=== PATIENT | male | born 1955 | race Caucasian/White ===

== ENCOUNTER → 2019-01-20 | Outpatient (CLI) | payer MEDICARE ==
--- NOTE | 2019-01-20 10:30 | Diagnostic Imaging Report ---
Clinical indication: Patient with shortness of breath. Exam: Chest x-ray PA and lateral views. Comparisons: None. Findings: Central line seen overlying left chest with tip in the mid superior vena cava. Lungs/pleura: There is mild patchy airspace opacities involving both lung bases and slight low lung volumes seen. There is no pneumothorax. There is no pleural effusion. Mediastinum: Unremarkable. Pulmonary vasculature: Unremarkable. Heart: Unremarkable. Bones/extrathoracic soft tissue: There are degenerative spurs involving the thoracic spine. Impression: 1: There is bibasilar atelectasis versus infiltrate. Dictated by: Dictated on workstation # [id number]
== END ==
LOC: RAD FS 09:51
PROVIDERS: ATTEND Physician Assistant
DX: J18.9 Pneumonia, unspecified organism (principal); Z95.828 Presence of other vascular implants and grafts
CPT/HCPCS: 71046

== ENCOUNTER → 2019-05-26 | Outpatient (CLI) | payer MEDICARE ==
[2019-05-26 10:12] LABS: CREATININE SERUM 1.35 MG/DL (0.60-1.30); POTASSIUM 4.3 MMOL/L (3.6-5.0)
--- NOTE | 2019-05-26 13:09 | Diagnostic Imaging Report ---
INDICATION: Multiple myeloma. TECHNIQUE: Bone survey performed in the routine fashion. FINDINGS: Views of the skull demonstrate few tiny punctate lucencies in the bony calvarium which may be related to patient's history of myeloma. Views of the cervical spine demonstrate diffuse degenerative changes, especially of the C5-C6 level, without discrete lytic lesion or compression deformity. Views of the thoracic spine demonstrate loss of height of T12 which is of undetermined age, may be chronic. Views of the lumbar spine show diffuse degenerative changes with normal height of the lumbar vertebrae. There is disc space narrowing, most prominent at L4-L5. Views of the ribs demonstrate no definite lytic lesion. There appear to be old fractures of the right fourth through eighth ribs. Views of the pelvis demonstrate ill-defined lucent areas over the iliac bones on both sides as well as over the proximal femurs, myelomatous involvement is not excluded. The distal femurs appear intact. The humeri appear unremarkable. The tibia and fibula on each side appear normal. The radius and ulna appear normal on both sides. IMPRESSION: There are small ill-defined lucencies in the bony calvarium which may represent myelomatous involvement. There also appear to be ill-defined lucencies in the bony pelvis and proximal femurs which could represent myelomatous involvement. There is a compression deformity of T12 of uncertain age. There are underlying degenerative findings in the spine, as above. Dictated by: Dictated on workstation # [id number]
== END ==
LOC: RAD FS 08:36
PROVIDERS: ATTEND Internal Medicine
DX: C90.00 Multiple myeloma not having achieved remission (principal); R79.89 Other specified abnormal findings of blood chemistry; M43.8X4 Other specified deforming dorsopathies, thoracic region
CPT/HCPCS: 36415; 77075; 80048

== ENCOUNTER 2022-06-15 15:50 | Observation (INO) | payer MEDICARE, OTHER ==
[~2022-06-15] VITALS: Ht 177.8 cm; Wt 103.0 kg
--- NOTE | 2022-06-15 15:53 | ED Fall/Injury ---
General Stated Complaint: FALL, RIGHT SIDE PAIN History of Present Illness Date Seen by Provider: Jun 15, 2022 Time Seen by Provider: 15:52 Initial Comments 66-year-old male with PMH of multiple myeloma on chemo and radiation/asthma, is brought in by EMS with complaints of falling off the second rung of a ladder after his foot got twisted and it. Patient fell on his right side and is complaining of right sided posterior rib pain and thoracic spine pain. Patient also complains of RUQ pain. Patient denies SOB, chest pain, head strike, neck pain, LOC, nausea vomiting, dizziness, headache. Allergies and Home Medications Allergies Coded Allergies: No Known Drug Allergies (Unverified , 06/15/22) Patient Home Medication List Home Medication List Reviewed: Yes Review of Systems Review of Systems Constitutional: no symptoms reported, see HPI Eyes: No Symptoms Reported Ears, Nose, Mouth, Throat: no symptoms reported Respiratory: no symptoms reported Cardiovascular: no symptoms reported Gastrointestinal: RUQ Genitourinary: no symptoms reported Musculoskeletal: back pain Skin: no symptoms reported Psychiatric/Neurological: No Symptoms Reported Physical Exam Vital Signs Vital Signs - First Documented Capillary Refill : Height, Weight, BMI Height: '" Weight: lbs. oz. kg; BMI Method: General Appearance: WD/WN, no apparent distress HEENT: PERRL/EOMI, normal ENT inspection Neck: non-tender, full range of motion, supple, normal inspection Cardiovascular: regular rate, rhythm, other (right sided rib pain more posteriorly from 5th rib downwards. no bruising on ribs) Respiratory: chest non-tender, lungs clear, normal breath sounds, no respiratory distress, no accessory muscle use, other (bilateral chest expansion equal and normal) Gastrointestinal: normal bowel sounds, soft, no pulsatile mass, tenderness (tender in RUQ on palpation), other (bruising seen in RUQ) Pelvic: normal external exam Extremities: normal range of motion, non-tender, normal inspection Neurologic/Psychiatric: supervisor liquid yeast II-XII nml as tested, no motor/sensory deficits, alert, normal mood/affect, oriented x 3 Skin: normal color Lymphatic: no adenopathy [place] Coma Score Best Eye Response: (4) Open Spontaneously Best Verbal Response: (5) Oriented Best Motor Response: (6) Obeys Commands [place] Total: 15 Progress/Results/Core Measures Results/Orders Lab Results Laboratory Tests Test 06/15/22 16:00 Range/Units White Blood Count 6.3 4.3-11.0 10^3/uL Red Blood Count 3.98 L 4.30-5.52 10^6/uL Hemoglobin 10.3 L 13.3-17.7 g/dL Hematocrit 33 L 40-54 % Mean Corpuscular Volume 82 80-99 fL Mean Corpuscular Hemoglobin 26 25-34 pg Mean Corpuscular Hemoglobin Concent 32 32-36 g/dL Red Cell Distribution Width 16.9 H 10.0-14.5 % Platelet Count 134 130-400 10^3/uL Mean Platelet Volume 10.8 9.0-12.2 fL Immature Granulocyte % (Auto) 1 % Neutrophils (%) (Auto) 51 42-75 % Lymphocytes (%) (Auto) 31 12-44 % Monocytes (%) (Auto) 16 H 0-12 % Eosinophils (%) (Auto) 1 0-10 % Basophils (%) (Auto) 0 0-10 % Neutrophils # (Auto) 3.2 1.8-7.8 10^3/uL Lymphocytes # (Auto) 2.0 1.0-4.0 10^3/uL Monocytes # (Auto) 1.0 0.0-1.0 10^3/uL Eosinophils # (Auto) 0.1 0.0-0.3 10^3/uL Basophils # (Auto) 0.0 0.0-0.1 10^3/uL Immature Granulocyte # (Auto) 0.1 0.0-0.1 10^3/uL Urine Color YELLOW Urine Clarity CLEAR Urine pH 6.0 5-9 Urine Specific [place] 1.020 1.016-1.022 Urine Protein NEGATIVE NEGATIVE Urine Glucose (UA) NEGATIVE NEGATIVE Urine Ketones NEGATIVE NEGATIVE Urine Nitrite NEGATIVE NEGATIVE Urine Bilirubin NEGATIVE NEGATIVE Urine Urobilinogen 0.2 < = 1.0 MG/DL Urine Leukocyte Esterase NEGATIVE NEGATIVE Urine RBC (Auto) TRACE-I H NEGATIVE Urine RBC 0-2 /HPF Urine WBC NONE /HPF Urine Squamous Epithelial Cells RARE /HPF Urine Crystals NONE /LPF Urine Bacteria NEGATIVE /HPF Urine Casts PRESENT /LPF Urine Hyaline Casts 0-2 H /LPF Urine Mucus MODERATE H /LPF Urine Culture Indicated NO Sodium Level 138 135-145 MMOL/L Potassium Level 3.9 3.6-5.0 MMOL/L Chloride Level 102 98-107 MMOL/L Carbon Dioxide Level 27 21-32 MMOL/L Anion Gap 9 5-14 MMOL/L Blood Urea Nitrogen 15 7-18 MG/DL Creatinine 1.07 0.60-1.30 MG/DL Estimat Glomerular Filtration Rate 77 BUN/Creatinine Ratio 14 Glucose Level 107 H 70-105 MG/DL Calcium Level 8.8 8.5-10.1 MG/DL Corrected Calcium 9.2 8.5-10.1 MG/DL Total Bilirubin 0.3 0.1-1.0 MG/DL Aspartate Amino Transf (AST/SGOT) 21 5-34 U/L Alanine Aminotransferase (ALT/SGPT) 14 0-55 U/L Alkaline Phosphatase 66 40-136 U/L Total Protein 5.6 L 6.4-8.2 GM/DL Albumin 3.5 3.2-4.5 GM/DL My Orders Orders - IMANI JACOBS MD Ct Thoracic/Lumbar Spine Wo (06/15/22 15:53) Cbc With Automated Diff (06/15/22 16:00) Comprehensive Metabolic Panel (06/15/22 16:00) Ua Culture If Indicated (06/15/22 16:00) Ct Chest/Abdomen/Pelvis Wo (06/15/22 15:53) Incentive Spirometry (Nursing) Q2H (06/15/22 17:17) Ketorolac Injection (Toradol Injection) (06/15/22 17:30) Medications Given in ED Current Medications Medications Dose Ordered Sig/Chanel Route Start Time Stop Time Status Last Admin Dose Admin Ketorolac Tromethamine 15 mg ONCE ONCE IVP 06/15/22 17:30 06/15/22 17:31 DC 06/15/22 17:32 15 MG Vital Signs/I&O 06/15/22 06/15/22 15:53 15:53 Temp 36.7 36.5 Pulse 73 73 Resp 17 17 B/P (MAP) 170/95 (120) 170/95 (120) O2 Delivery Room Air Room Air Progress Progress Note : Progress Note 1. FALL: MULTIPLE RIB FRACTURES - CT CHEST: see report: Fractures of Right sided, 1st rib ( posterior), 6th rib ( displaced), 7th rib, 9th rib, and left sided 7th rib, no pneumothorax - CT THORACIC-LUMBAR SPINE: see report, chronic disc herniations between L2-L5 - CT CT ABD: no acute findings - CBC/ CMP: unremarkable - UA: RBC positive - Toradol 15mg iv and Dilaudid 0.5mg iv given in ER - Incentive spirometry in ER - Will admit to observation for pain control and incentive spirometry. Discussed with Dr Chaparro Diagnostic Imaging Diagonstic Imaging: CT Plain Films/CT/US/NM/MRI: chest, abdomen, other Comments [facility], [place] NAME: MICHAEL GRIMES [facility] REC#: [id number] PT STATUS: REG ER : 1955 PHYSICIAN: IMANI JACOBS MD ADMIT DATE: 06/15/22/ER FS Draft Date of Exam:06/15/22 CT THORACIC/LUMBAR SPINE WO PROCEDURE: CT thoracic and lumbar spine without contrast. TECHNIQUE: Multiple contiguous axial images were obtained through the thoracic and lumbar spine without the use of intravenous contrast. Sagittal and coronal reformations were then performed. All CT scans use one or more of the following dose optimizing techniques: automated exposure control, MA and/or KvP adjustment based on patient size and exam type or iterative reconstruction. INDICATION: 66-year-old male, status post fall off a ladder, approximately 2-3', landing on right side. CORRELATION STUDY: None. FINDINGS: There is extensive demineralized appearance about the osseous structures with multiple extensive lytic changes throughout all visualized osseous structures compatible with history of multiple myeloma. Mild compression deformity of superior T4 endplate appearing to be nonacute. An acute appearing compression deformity of the thoracic spine does not appear to be present. There are scattered areas of multiple anteriorly wedged vertebral bodies. Posterior elements intact. Lumbar spine demonstrates slight scalloping and intervertebral disc herniation at the superior L2 and L4 vertebral bodies appearing to be nonacute. Posterior elements are intact and normal in alignment. Various degrees of rather significant disc space narrowing. Most severe at the L4-L5 level with a markedly expanded appearance about the left sacral ala with soft tissue mass and extensive destructive change. Additional large lytic lesions about the right iliac bone. There is bony fusion across the right sacroiliac joint. Displaced right posterior 6th rib fracture. Nondisplaced right posterior 1st rib fracture. Trace pleural effusion and/or hemothorax. No significant visualized pneumothorax. IMPRESSION: 1. Negative for acute thoracic and/or lumbar spine fracture. 2. Displaced partially visualized right posterior 6th rib fracture along with a nondisplaced right posterior 1st rib fracture. 3. Extensive lytic changes throughout all visualized osseous structures consistent with extensive multiple myeloma. Largest destructive lesion involving the left sacral ala. Dictated on workstation # [id number] Dict: 06/15/22 1650 Trans: 06/15/22 1715 PJE [id number] Interpreted by: PADMINI THOMAS DO Electronically signed by: [facility] [place], [place] NAME: MICHAEL GRIMES [facility] REC#: [id number] PT STATUS: REG ER : 1955 PHYSICIAN: IMANI JACOBS MD ADMIT DATE: 06/15/22/ER FS Draft Date of Exam:06/15/22 CT CHEST/ABDOMEN/PELVIS WO EXAMINATION: CT chest, abdomen and pelvis without intravenous contrast. TECHNIQUE: Multiple contiguous axial images were obtained through the chest, abdomen and pelvis without intravenous contrast. All CT scans use one or more of the following dose optimizing techniques: automated exposure control, MA and/or KvP adjustment based on patient size and exam type or iterative reconstruction. HISTORY: Chest and abdomen injury. COMPARISON: None available. FINDINGS: There is no edema or pneumonia. No pleural effusion. No pneumothorax. No suspicious nodules. There is no axillary or supraclavicular lymphadenopathy. There is no mediastinal lymphadenopathy. A left-sided portacatheter is present. Heart size is normal. There are mild coronary artery calcifications. No pericardial effusion. Aorta is normal in caliber. There are several low attenuating liver lesions, some of which are cysts and others are too small to characterize. There is no biliary ductal dilation. Gallbladder is normal. Pancreas is normal. Spleen is normal. Adrenal glands are normal. Left kidney is surgically absent. There is a cyst in the right kidney. No suspicious renal lesion. There is no hydronephrosis. Urinary bladder is normal. There has been a right colon resection. No bowel obstruction or inflammation. There is a small fat-containing ventral abdominal hernia.No free fluid or air. No abdominal or pelvic lymphadenopathy. Aorta is normal in caliber without aneurysm. There are lytic lesions scattered throughout the spine and pelvis including the largest lesion in S2 measuring 2.5 cm. There is a right 9th rib fracture. There is a right 7th rib fracture. There is a right 6th rib fracture. There is a left 7th rib fracture. Mild height loss at T12 would be better evaluated on dedicated thoracic and lumbar spine CT. IMPRESSION: 1. Right 6th, 7th and 9th rib fractures and left 7th rib fracture. 2. Lytic lesions throughout the spine and pelvis, correlate for any known malignancy. Dictated on workstation # [id number] Dict: 06/15/223 Trans: 06/15/22 170 [facility] [id number] Interpreted by: KOLBY MORALES MD Electronically signed by: Departure Communication (Admissions) Time/Spoke to Admitting Phy: 17:[address] Chaparro Impression Primary Impression: Fall from ladder Qualified Codes: W11.XXXA - Fall on and from ladder, initial encounter Additional Impression: Multiple rib fractures involving four or more ribs Disposition: 30 STILL A PATIENT Condition: Stable Admissions Decision to Admit Reason: Admit from ER (General) Decision to Admit/Date: Jun 15, 2022 Time/Decision to Admit Time: 17:40 Transfer Transfer Reason: Exceeds level of care Time Spoke to Accepting Phy: 17:53 Transfer Facility: [facility] Method of Transfer: EMS Departure-Patient Inst. Referrals: ZAIN DEL TORO MD (PCP/Family) Primary Care Physician IMANI JACOBS MD Jun 15, 2022 15:53
[2022-06-15 16:10] LABS: BASOPHILS % (AUTO) 0 % (0-10); EOSINOPHILS # (AUTO) 0.1 10^3/uL (0.0-0.3); EOSINOPHILS % (AUTO) 1 % (0-10); HEMATOCRIT 33 % (40-54); HEMOGLOBIN 10.3 g/dL (13.3-17.7); LYMPHOCYTES % (AUTO) 31 % (12-44); MEAN CORPUSCULAR HEMOGLOBIN 26 pg (25-34); MEAN CORPUSCULAR HGB CONC 32 g/dL (32-36); MEAN CORPUSCULAR VOLUME 82 fL (80-99); MEAN PLATELET VOLUME 10.8 fL (9.0-12.2); MONOCYTES % (AUTO) 16 % (0-12); NEUTROPHILS # (AUTO) 3.2 10^3/uL (1.8-7.8); NEUTROPHILS % (AUTO) 51 % (42-75); PLATELET COUNT 134 10^3/uL (130-400); WHITE BLOOD COUNT 6.3 10^3/uL (4.3-11.0)
[2022-06-15 16:15] LABS: BILIRUBIN,URINE NEGATIVE (NEGATIVE); CLARITY,URINE CLEAR; COLOR,URINE YELLOW; GLUCOSE, URINE (UA) NEGATIVE (NEGATIVE); KETONES,URINE NEGATIVE (NEGATIVE); LEUKOCYTE ESTERASE ,URINE NEGATIVE (NEGATIVE); NITRITE,URINE NEGATIVE (NEGATIVE); PROTEIN,URINE NEGATIVE (NEGATIVE)
[2022-06-15 16:20] LABS: BACTERIA,URINE NEGATIVE /HPF; HYALINE CASTS, URINE 0-2 /LPF; RBC,URINE 0-2 /HPF; SQUAMOUS EPITHELIAL CELL,UR RARE /HPF
[2022-06-15 16:30] LABS: ALBUMIN 3.5 GM/DL (3.2-4.5); BILIRUBIN,TOTAL 0.3 MG/DL (0.1-1.0); CALCIUM 8.8 MG/DL (8.5-10.1); CREATININE SERUM 1.07 MG/DL (0.60-1.30); POTASSIUM 3.9 MMOL/L (3.6-5.0); TOTAL PROTEIN 5.6 GM/DL (6.4-8.2)
--- NOTE | 2022-06-15 17:09 | Diagnostic Imaging Report ---
EXAMINATION: CT chest, abdomen and pelvis without intravenous contrast. TECHNIQUE: Multiple contiguous axial images were obtained through the chest, abdomen and pelvis without intravenous contrast. All CT scans use one or more of the following dose optimizing techniques: automated exposure control, MA and/or KvP adjustment based on patient size and exam type or iterative reconstruction. HISTORY: Chest and abdomen injury. COMPARISON: None available. FINDINGS: There is no edema or pneumonia. No pleural effusion. No pneumothorax. No suspicious nodules. There is no axillary or supraclavicular lymphadenopathy. There is no mediastinal lymphadenopathy. A left-sided portacatheter is present. Heart size is normal. There are mild coronary artery calcifications. No pericardial effusion. Aorta is normal in caliber. There are several low attenuating liver lesions, some of which are cysts and others are too small to characterize. There is no biliary ductal dilation. Gallbladder is normal. Pancreas is normal. Spleen is normal. Adrenal glands are normal. Left kidney is surgically absent. There is a cyst in the right kidney. No suspicious renal lesion. There is no hydronephrosis. Urinary bladder is normal. There has been a right colon resection. No bowel obstruction or inflammation. There is a small fat-containing ventral abdominal hernia.No free fluid or air. No abdominal or pelvic lymphadenopathy. Aorta is normal in caliber without aneurysm. There are lytic lesions scattered throughout the spine and pelvis including the largest lesion in S2 measuring 2.5 cm. There is a right 9th rib fracture. There is a right 7th rib fracture. There is a right 6th rib fracture. There is a left 7th rib fracture. Mild height loss at T12 would be better evaluated on dedicated thoracic and lumbar spine CT. IMPRESSION: 1. Right 6th, 7th and 9th rib fractures and left 7th rib fracture. 2. Lytic lesions throughout the spine and pelvis, correlate for any known malignancy. Dictated by: Dictated on workstation # [id number]
--- NOTE | 2022-06-15 17:16 | Diagnostic Imaging Report ---
PROCEDURE: CT thoracic and lumbar spine without contrast. TECHNIQUE: Multiple contiguous axial images were obtained through the thoracic and lumbar spine without the use of intravenous contrast. Sagittal and coronal reformations were then performed. All CT scans use one or more of the following dose optimizing techniques: automated exposure control, MA and/or KvP adjustment based on patient size and exam type or iterative reconstruction. INDICATION: 66-year-old male, status post fall off a ladder, approximately 2-3', landing on right side. CORRELATION STUDY: None. FINDINGS: There is extensive demineralized appearance about the osseous structures with multiple extensive lytic changes throughout all visualized osseous structures compatible with history of multiple myeloma. Mild compression deformity of superior T4 endplate appearing to be nonacute. An acute appearing compression deformity of the thoracic spine does not appear to be present. There are scattered areas of multiple anteriorly wedged vertebral bodies. Posterior elements intact. Lumbar spine demonstrates slight scalloping and intervertebral disc herniation at the superior L2 and L4 vertebral bodies appearing to be nonacute. Posterior elements are intact and normal in alignment. Various degrees of rather significant disc space narrowing. Most severe at the L4-L5 level with a markedly expanded appearance about the left sacral ala with soft tissue mass and extensive destructive change. Additional large lytic lesions about the right iliac bone. There is bony fusion across the right sacroiliac joint. Displaced right posterior 6th rib fracture. Nondisplaced right posterior 1st rib fracture. Trace pleural effusion and/or hemothorax. No significant visualized pneumothorax. IMPRESSION: 1. Negative for acute thoracic and/or lumbar spine fracture. 2. Displaced partially visualized right posterior 6th rib fracture along with a nondisplaced right posterior 1st rib fracture. 3. Extensive lytic changes throughout all visualized osseous structures consistent with extensive multiple myeloma. Largest destructive lesion involving the left sacral ala. Dictated by: Dictated on workstation # [id number]
[2022-06-15] MEDS ORDERED: KETOROLAC 30 MG/ML VIAL IVP ONE (17:30)
[2022-06-15] MEDS ORDERED: HYDROmorphone 2 MG/ML VIAL (DILAUDID) IV ONE (18:00)
[2022-06-15 19:53] VITALS: BP 170/95
[2022-06-15] MEDS ORDERED: morphine INJ 4 MG/ML 1 ML (VIAL/SYRINGE) ONE (19:58)
[2022-06-15 20:00] VITALS: BP 167/92
[2022-06-15] MEDS ORDERED: KETOROLAC 15 MG/ML VIAL IV PRN (21:15)
[2022-06-15] MEDS ORDERED: morphine INJ 4 MG/ML 1 ML (VIAL/SYRINGE) IV PRN (21:15)
[2022-06-15] MEDS ORDERED: ONDANSETRON 4 MG/2 ML (SDV) Z0FRAN IV PRN (21:30)
[2022-06-15] MEDS ORDERED: MELATONIN 3 MG TABLET PO PRN (21:30)
[2022-06-15] MEDS ORDERED: RT-ALBUTEROL/IPRATROPIUM 3 ML (DUONEB) VIAL IH PRN (21:30)
[2022-06-15] MEDS: oxyCODONE/APAP 5/325MG (PERCOCET 5) TABLET PO PRN (21:34)
[2022-06-15] MEDS: CATHETER FLUSH 10 ML SYR IVP SCH (22:08)
[2022-06-15] MEDS ORDERED: RT-ALBUTEROL SULF 2.5 MG/3 ML PRE-MIX VIAL INH PRN (23:00)
[2022-06-16 00:07] VITALS: BP 155/80
[2022-06-16] MEDS: morphine INJ 4 MG/ML 1 ML (VIAL/SYRINGE) IVP PRN ×4 (03:31→11:37)
[2022-06-16 03:48] VITALS: BP 160/89
[2022-06-16] MEDS: CATHETER FLUSH 10 ML SYR IVP SCH ×2 (05:32→13:55)
[2022-06-16 05:45] LABS: EOSINOPHILS % (AUTO) 1 % (0-10); HEMOGLOBIN 11.5 g/dL (13.3-17.7)
[2022-06-16 05:47] LABS: BASOPHILS % (AUTO) 0 % (0-10); HEMATOCRIT 36 % (40-54); LYMPHOCYTES # (AUTO) 1.2 10^3/uL (1.0-4.0); LYMPHOCYTES % (AUTO) 20 % (12-44); MEAN CORPUSCULAR HEMOGLOBIN 26 pg (25-34); MEAN CORPUSCULAR HGB CONC 32 g/dL (32-36); MEAN CORPUSCULAR VOLUME 81 fL (80-99); MEAN PLATELET VOLUME 10.2 fL (9.0-12.2); MONOCYTES # (AUTO) 0.9 10^3/uL (0.0-1.0); MONOCYTES % (AUTO) 15 % (0-12); NEUTROPHILS # (AUTO) 3.8 10^3/uL (1.8-7.8); NEUTROPHILS % (AUTO) 64 % (42-75); PLATELET COUNT 124 10^3/uL (130-400)
[2022-06-16 06:01] LABS: CREATININE SERUM 0.83 MG/DL (0.60-1.30); POTASSIUM 3.8 MMOL/L (3.6-5.0)
[2022-06-16 08:00] VITALS: BP 164/89
[2022-06-16] MEDS ORDERED: AMLO-251 PO (08:09)
[2022-06-16] MEDS: oxyCODONE/APAP 5/325MG (PERCOCET 5) TABLET PO PRN ×2 (08:54→13:55)
[2022-06-16] MEDS ORDERED: amLODIPine 10 MG (NORVASC) TAB PO SCH (09:00)
[2022-06-16] MEDS ORDERED: SOTA120T PO (10:00)
[2022-06-16] MEDS ORDERED: DEXA4TAB PO (10:00)
[2022-06-16] MEDS ORDERED: APIX5TAB PO (10:00)
[2022-06-16] MEDS ORDERED: PANT40TA52 PO (10:00)
[2022-06-16] MEDS ORDERED: ACYC-108 PO (10:00)
[2022-06-16] MEDS ORDERED: MORP60TA69 PO (10:00)
[2022-06-16] MEDS ORDERED: OXYC1TAB11 PO (10:00)
[2022-06-16] MEDS ORDERED: BORT3.5V IJ (10:02)
[2022-06-16] MEDS ORDERED: POLY17PO6 PO (10:02)
--- NOTE | 2022-06-16 11:54 | Consultation - Surgery ---
SUNITA MATOS 06/16/22 1154: History of Present Illness History of Present Illness Patient Consulted On(josselyn/time) 06/16/22 11:48 Date Seen by Provider: Jun 16, 2022 Time Seen by Provider: 11:20 History of Present Illness Pt is a 66yo M who presented to the ED on the afternoon of 06/15 after falling from a ladder onto his right shoulder and hip. He has a PMH of multiple myeloma, asthma, afib, chrons disease, chronic renal failure,skin cancer, and HTN. Pt reports 2 falls in the last 6 months that were not as hard or serious as this fall. Pt denied that he struck his head on the fall. He denies any loss of consciousness or changes in vision/hearing after the fall. Pt currently has 6/10 pain deep to the right scapula. He describes the pain as "getting stabbed with a knife". Pain is constant and nonradiating. Motion makes the pain worse. Pt reports pain on his right side with deep inspiration. Pt also feels muscle tightness in his torso that he believes is due to him being unable to relax. Pt denies any other issues at this time, such as chest pain, shortness of breath, and N/V. Allergies and Home Medications Allergies Coded Allergies: thalidomide (Verified Allergy, Unknown, 06/15/22) Patient Home Medication List Home Medication List Reviewed: Yes Acyclovir (Acyclovir) 200 Mg Capsule, 400 MG PO BID, (Reported) Entered as Reported by: BREANNA GUERRERO on 06/16/22 1000 Last Action: Reviewed Amlodipine Besylate (Amlodipine Besylate) 10 Mg Tablet, 10 MG PO DAILY, (Reported) Entered as Reported by: TIANA NERI on 06/16/22 0809 Last Action: Reviewed Apixaban (Eliquis) 5 Mg Tablet, 5 MG PO BID, (Reported) Entered as Reported by: BREANNA GUERRERO on 06/16/22 1000 Last Action: Reviewed Bortezomib (Velcade) 3.5 Mg Soln, 3.5 MG IJ [id number], (Reported) Entered as Reported by: BREANNA GUERRERO on 06/16/22 1002 Last Action: Reviewed Dexamethasone (Dexamethasone) 4 Mg Tablet, 20 MG PO THURSDAY, (Reported) Entered as Reported by: BREANNA GUERRERO on 10/10/22 1000 Last Action: Reviewed Morphine Sulfate (Morphine Sulfate ER) 60 Mg Tablet.er, 60 MG PO BID, (Reported) Entered as Reported by: BREANNA GUERRERO on 06/16/22999 Last Action: Reviewed Oxycodone HCl/Acetaminophen (Oxycodone-Acetaminophen 5-325) 5 Mg-325 Mg Tablet, 1 EACH PO Q4H PRN for PAIN-MODERATE (5-7), (Reported) Entered as Reported by: BREANNA GUERRERO on 06/16/22999 Last Action: Reviewed Pantoprazole Sodium (Pantoprazole Sodium) 40 Mg Tablet.dr, 40 MG PO DAILY, (Reported) Entered as Reported by: BREANNA GUERRERO on 06/16/22999 Last Action: Reviewed Polyethylene Glycol 3350 (Miralax) 17 Gram Powd.pack, 17 GM PO DAILY, (Reported) Entered as Reported by: BREANNA GUERRERO on 06/16/221001 Last Action: Reviewed Sotalol HCl (Sotalol) 120 Mg Tablet, 120 MG PO BID, (Reported) Entered as Reported by: BREANNA GUERRERO on 06/16/22999 Last Action: Reviewed Past Twbxihl-Yipmiq-Mbppwy Hx Patient Social History Smoking Status: Never a Smoker Alcohol Use?: No Have you traveled recently?: No Surgeries History of Surgeries: Yes (multiple skin cancers romoved, pt was unsure of pathological findings) Surgeries: Abdominal (pt reports part of intestines removed, CT reveals evidence of right colectomy), Cardiac (ablation for afib), 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, 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) Respiratory History of Respiratory Disorde: Yes Respiratory Disorders: Asthma Cardiovascular History of Cardiac Disorders: Yes Cardiac Disorders: Hypertension Neurological History of Neurological Disord: No (pt denies stroke or seizure) Gastrointestinal History of Gastrointestinal Di: Yes (pt also reports esophageal structure) Gastrointestinal Disorders: Crohns Disease Musculoskeletal History of Musculoskeletal Dis: Yes Musculoskeletal Disorders: Arthritis Endocrine History of Endocrine Disorders: No (pt denies DM) Cancer History of Cancer: Yes (multiple myeloma and skin cancer- pt unsure of what type) Psychosocial History of Psychiatric Problem: No Family Medical History Significant Family History: Cancer (mother had breast cancer), Hypertension (brother), Other Conditions/Hx (pt denies family history of DM and seizure di sorder) Review of Systems-General Constitutional: No chills, No fever EENTM: No hearing loss, No blurred vision, No double vision, No vision loss Respiratory: No cough, No short of breath Cardiovascular: No chest pain; Hx of Intervention (ablation for afib); No palpitations Gastrointestinal: No abdominal pain, No nausea, No vomiting Genitourinary: No dysuria Musculoskeletal: back pain (pain under right scapula), muscle stiffness (pt reports thoracic stiffness due to pain, T-spine is stiff to palpation) Skin: No change in color, No change in hair/nails; hx of skin cancer Psychiatric/Neurological: Denies Headache, Denies Seizure Physical Exam-General Problems Physical Exam Vital Signs Vital Signs - First Documented 06/15/22 06/15/22 18:38 19:53 Pulse Ox 98 FiO2 21 Capillary Refill : Less Than 3 Seconds General Appearance: WD/WN, mild distress (pain) Eyes: Bilateral Eye PERRL, Bilateral Eye EOMI HEENT: PERRL/EOMI; No scleral icterus (R), No scleral icterus (L) Neck: non-tender, supple Respiratory: lungs clear, normal breath sounds, no respiratory distress, other (pt is hesitant to take deep inspiration) Cardiovascular: regular rate, rhythm, no murmur Peripheral Pulses: 2+ Radial Pulses (R), 2+ Radial Pulses (L) Gastrointestinal: normal bowel sounds, non tender, soft, other (CT reports small ventral hernia, could not see or palpate hernia) Rectal: deferred Back: normal inspection (no bruising or discoloration of back), other (pain on palpation of right scapula) Extremities: non-tender, no calf tenderness, pedal edema (pt says this is chronic and better than usual today, up to mid tibia bl) Neurologic/Psychiatric: alert, normal mood/affect, oriented x 3; No facial droop Skin: normal color, warm/dry Lymphatic: no adenopathy (cervical) Data Review Labs Laboratory Tests 06/15/22 16:00: White Blood Count 6.3, Red Blood Count 3.98L, Hemoglobin 10.3L, Hematocrit 33L, Mean Corpuscular Volume 82, Mean Corpuscular Hemoglobin 26, Mean Corpuscular Hemoglobin Concent 32, Red Cell Distribution Width 16.9H, Platelet Count 134, Mean Platelet Volume 10.8, Immature Granulocyte % (Auto) 1, Neutrophils (%) (Auto) 51, Lymphocytes (%) (Auto) 31, Monocytes (%) (Auto) 16H, Eosinophils (%) (Auto) 1, Basophils (%) (Auto) 0, Neutrophils # (Auto) 3.2, Lymphocytes # (Auto) 2.0, Monocytes # (Auto) 1.0, Eosinophils # (Auto) 0.1, Basophils # (Auto) 0.0, Immature Granulocyte # (Auto) 0.1, Urine Color YELLOW, Urine Clarity CLEAR, Urine pH 6.0, Urine Specific [place] 1.020, Urine Protein NEGATIVE, Urine Glucose (UA) NEGATIVE, Urine Ketones NEGATIVE, Urine Nitrite NEGATIVE, Urine Bilirubin NEGATIVE, Urine Urobilinogen 0.2, Urine Leukocyte Esterase NEGATIVE, Urine RBC (Auto) TRACE-IH, Urine RBC 0-2, Urine WBC NONE, Urine Squamous Epithelial Cells RARE, Urine Crystals NONE, Urine Bacteria NEGATIVE, Urine Casts PRESENT, Urine Hyaline Casts 0-2H, Urine Mucus MODERATEH, Urine Culture Indicated NO, Sodium Level 138, Potassium Level 3.9, Chloride Level 102, Carbon Dioxide Level 27, Anion Gap 9, Blood Urea Nitrogen 15, Creatinine 1.07, Estimat Glomerular Filtration Rate 77, BUN/Creatinine Ratio 14, Glucose Level 107H, Calcium Level 8.8, Corrected Calcium 9.2, Total Bilirubin 0.3, Aspartate Amino Transf (AST/SGOT) 21, Alanine Aminotransferase (ALT/SGPT) 14, Alkaline Phosphatase 66, Total Protein 5.6L, Albumin 3.5 06/16/22 05:39: White Blood Count 6.0, Red Blood Count 4.46, Hemoglobin 11.5L, Hematocrit 36L, Mean Corpuscular Volume 81, Mean Corpuscular Hemoglobin 26, Mean Corpuscular Hemoglobin Concent 32, Red Cell Distribution Width 16.4H, Platelet Count 124L, Mean Platelet Volume 10.2, Immature Granulocyte % (Auto) 1, Neutrophils (%) (Auto) 64, Lymphocytes (%) (Auto) 20, Monocytes (%) (Auto) 15H, Eosinophils (%) (Auto) 1, Basophils (%) (Auto) 0, Neutrophils # (Auto) 3.8, Lymphocytes # (Auto) 1.2, Monocytes # (Auto) 0.9, Eosinophils # (Auto) 0.0, Basophils # (Auto) 0.0, Immature Granulocyte # (Auto) 0.0, Sodium Level 142, Potassium Level 3.8, Chloride Level 105, Carbon Dioxide Level 25, Anion Gap 12, Blood Urea Nitrogen 9, Creatinine 0.83, Estimat Glomerular Filtration Rate 97, BUN/Creatinine Ratio 11, Glucose Level 105, Calcium Level 9.0, Percent Immature Platelet Fraction 3.3 Radiology NAME: [facility] REC#: [id number] PT STATUS: REG ER : 1955 PHYSICIAN: IMANI JACOBS MD ADMIT DATE: 06/15/22/ER FS Draft Date of Exam:06/15/22 CT THORACIC/LUMBAR SPINE WO PROCEDURE: CT thoracic and lumbar spine without contrast. TECHNIQUE: Multiple contiguous axial images were obtained through the thoracic and lumbar spine without the use of intravenous contrast. Sagittal and coronal reformations were then performed. All CT scans use one or more of the following dose optimizing techniques: automated exposure control, MA and/or KvP adjustment based on patient size and exam type or iterative reconstruction. INDICATION: 66-year-old male, status post fall off a ladder, approximately 2-3', landing on right side. CORRELATION STUDY: None. FINDINGS: There is extensive demineralized appearance about the osseous structures with multiple extensive lytic changes throughout all visualized osseous structures compatible with history of multiple myeloma. Mild compression deformity of superior T4 endplate appearing to be nonacute. An acute appearing compression deformity of the thoracic spine does not appear to be present. There are scattered areas of multiple anteriorly wedged vertebral bodies. Posterior elements intact. Lumbar spine demonstrates slight scalloping and intervertebral disc herniation at the superior L2 and L4 vertebral bodies appearing to be nonacute. Posterior elements are intact and normal in alignment. Various degrees of rather significant disc space narrowing. Most severe at the L4-L5 level with a markedly expanded appearance about the left sacral ala with soft tissue mass and extensive destructive change. Additional large lytic lesions about the right iliac bone. There is bony fusion across the right sacroiliac joint. Displaced right posterior 6th rib fracture. Nondisplaced right posterior 1st rib fracture. Trace pleural effusion and/or hemothorax. No significant visualized pneumothorax. IMPRESSION: 1. Negative for acute thoracic and/or lumbar spine fracture. 2. Displaced partially visualized right posterior 6th rib fracture along with a nondisplaced right posterior 1st rib fracture. 3. Extensive lytic changes throughout all visualized osseous structures consistent with extensive multiple myeloma. Largest destructive lesion involving the left sacral ala. Dictated on workstation # [id number] Dict: 06/15/22 1650 Trans: 06/15/22 1715 [facility] [id number] Interpreted by: PADMINI THOMAS DO Electronically signed by: NAME: [facility] REC#: [id number] PT STATUS: REG ER : 1955 PHYSICIAN: IMANI JACOBS MD ADMIT DATE: 06/15/22/ER FS Draft Date of Exam:06/15/22 CT CHEST/ABDOMEN/PELVIS WO EXAMINATION: CT chest, abdomen and pelvis without intravenous contrast. TECHNIQUE: Multiple contiguous axial images were obtained through the chest, abdomen and pelvis without intravenous contrast. All CT scans use one or more of the following dose optimizing techniques: automated exposure control, MA and/or KvP adjustment based on patient size and exam type or iterative reconstruction. HISTORY: Chest and abdomen injury. COMPARISON: None available. FINDINGS: There is no edema or pneumonia. No pleural effusion. No pneumothorax. No suspicious nodules. There is no axillary or supraclavicular lymphadenopathy. There is no mediastinal lymphadenopathy. A left-sided portacatheter is present. Heart size is normal. There are mild coronary artery calcifications. No pericardial effusion. Aorta is normal in caliber. There are several low attenuating liver lesions, some of which are cysts and others are too small to characterize. There is no biliary ductal dilation. Gallbladder is normal. Pancreas is normal. Spleen is normal. Adrenal glands are normal. Left kidney is surgically absent. There is a cyst in the right kidney. No suspicious renal lesion. There is no hydronephrosis. Urinary bladder is normal. There has been a right colon resection. No bowel obstruction or inflammation. There is a small fat-containing ventral abdominal hernia.No free fluid or air. No abdominal or pelvic lymphadenopathy. Aorta is normal in caliber without aneurysm. There are lytic lesions scattered throughout the spine and pelvis including the largest lesion in S2 measuring 2.5 cm. There is a right 9th rib fracture. There is a right 7th rib fracture. There is a right 6th rib fracture. There is a left 7th rib fracture. Mild height loss at T12 would be better evaluated on dedicated thoracic and lumbar spine CT. IMPRESSION: 1. Right 6th, 7th and 9th rib fractures and left 7th rib fracture. 2. Lytic lesions throughout the spine and pelvis, correlate for any known malignancy. Dictated on workstation # [id number] Dict: 06/15/22 1653 Trans: 06/15/22 1708 [facility] [id number] Interpreted by: KOLBY MORALES MD Electronically signed by: Assessment/Plan Assessment/Plan Assessment/Plan Multiple rib fractures following a fall Multiple Myeloma Asthma Chrons Dz Chronic Kidney Dz- pt reports CKD but BUN, Creatinine, and estimated GFR are within normal limits Plan: Ct confirmed multiple rib fractures on the right and one on the left. Diffuse lytic lesions noted, the worst is at the left sacral ala. Manage pts pain, currently 6/10, feeling better than yesterday. Continue use of incentive spirometer to prevent atalectasis and PNA. Pt should ambulate as tolerated. These fractures could be related to lytic lesions secondary to the chronic multiple myeloma. SHANIQUE LOPES DO 06/16/22 1431: History of Present Illness History of Present Illness Time Seen by Provider: 14:01 History of Present Illness Surgery asked to consult regarding Fall and rib fractures. HPI per ED: 66-year-old male with PMH of multiple myeloma on chemo and radiation/asthma, is brought in by EMS with complaints of falling off the second rung of a ladder after his foot got twisted and it. Patient fell on his right side and is complaining of right sided posterior rib pain and thoracic spine pain. Patient also complains of RUQ pain. Patient denies SOB, chest pain, head strike, neck pain, LOC, nausea vomiting, dizziness, headache. When I spoke to pt he was sitting up in chair, appeared comfortable and stated pain was 5 out of 10. Pain worse with movement and deep breath. Pt and his 's main concern is limitations when he goes home. Stated last time he fell, he "missed a step as I was getting out of truck and rolled down onto the ground. Allergies and Home Medications Allergies Coded Allergies: thalidomide (Verified Allergy, Unknown, 06/15/22) Patient Home Medication List Home Medication List Reviewed: Yes Acyclovir (Acyclovir) 200 Mg Capsule, 400 MG PO BID, (Reported) Entered as Reported by: BREANNA GUERRERO on 10/10/22 1000 Last Action: Reviewed Amlodipine Besylate (Amlodipine Besylate) 10 Mg Tablet, 10 MG PO DAILY, (Reported) Entered as Reported by: TIANA NERI on 06/16/22 08 Last Action: Reviewed Apixaban (Eliquis) 5 Mg Tablet, 5 MG PO BID, (Reported) Entered as Reported by: BREANNA GEURRERO on 06/16/22999 Last Action: Reviewed Bortezomib (Velcade) 3.5 Mg Soln, 3.5 MG IJ [id number], (Reported) Entered as Reported by: BREANNA GUERRERO on 06/16/221001 Last Action: Reviewed Dexamethasone (Dexamethasone) 4 Mg Tablet, 20 MG PO THURSDAY, (Reported) Entered as Reported by: BREANNA GUERRERO on 06/16/22999 Last Action: Reviewed Morphine Sulfate (Morphine Sulfate ER) 60 Mg Tablet.er, 60 MG PO BID, (Reported) Entered as Reported by: BREANNA GUERRERO on 06/16/22999 Last Action: Reviewed Oxycodone HCl/Acetaminophen (Oxycodone-Acetaminophen 5-325) 5 Mg-325 Mg Tablet, 1 EACH PO Q4H PRN for PAIN-MODERATE (5-7), (Reported) Entered as Reported by: BREANNA GUERRERO on 06/16/22999 Last Action: Reviewed Pantoprazole Sodium (Pantoprazole Sodium) 40 Mg Tablet.dr, 40 MG PO DAILY, (Reported) Entered as Reported by: BREANNA GUERRERO on 06/16/22999 Last Action: Reviewed Polyethylene Glycol 3350 (Miralax) 17 Gram Powd.pack, 17 GM PO DAILY, (Reported) Entered as Reported by: BREANNA GUERRERO on 06/16/221001 Last Action: Reviewed Sotalol HCl (Sotalol) 120 Mg Tablet, 120 MG PO BID, (Reported) Entered as Reported by: BREANNA GUERRERO on 06/16/22999 Last Action: Reviewed Past Umgbuai-Kwthjf-Nnsnnw Hx Patient Social History Smoking Status: Never a Smoker Alcohol Use?: No Surgeries History of Surgeries: Yes (multiple skin cancers romoved, pt was unsure of pathological findings) Surgeries: Abdominal (pt reports part of intestines removed, CT reveals evidence of right colectomy), Cardiac (ablation for afib), 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, 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) Respiratory History of Respiratory Disorde: Yes Respiratory Disorders: Asthma Cardiovascular History of Cardiac Disorders: Yes Cardiac Disorders: Hypertension Neurological History of Neurological Disord: No (pt denies stroke or seizure) Genitourinary History of Genitourinary Disor: No (hx of nephrectomy, he donated it ) Gastrointestinal History of Gastrointestinal Di: Yes (pt also reports esophageal structure) Gastrointestinal Disorders: Crohns Disease, Obstructive Bowel Musculoskeletal History of Musculoskeletal Dis: Yes Musculoskeletal Disorders: Arthritis Endocrine History of Endocrine Disorders: No (pt denies DM) Cancer History of Cancer: Yes (multiple myeloma and skin cancer- pt unsure of what type) Psychosocial History of Psychiatric Problem: No Family Medical History Significant Family History: Cancer (mother had breast cancer), Hypertension (brother), Other Conditions/Hx (pt denies family history of DM and seizure disorder) Review of Systems-General Constitutional: No chills, No fever EENTM: No hearing loss, No blurred vision, No double vision, No vision loss Respiratory: No cough, No short of breath; other (pain with deep breaths) Cardiovascular: No chest pain; Hx of Intervention (ablation for afib); No palpitations Gastrointestinal: No abdominal pain, No nausea, No vomiting Genitourinary: No dysuria, No hematuria Musculoskeletal: back pain (pain under right scapula), muscle stiffness (pt reports thoracic stiffness due to pain, T-spine is stiff to palpation) Skin: No change in color, No change in hair/nails; hx of skin cancer Psychiatric/Neurological: Denies Anxiety, Denies Depressed, Denies Headache, Denies Seizure; Other (recent balance problems) Physical Exam-General Problems Physical Exam General Appearance: WD/WN, mild distress (pain) Eyes: Bilateral Eye PERRL, Bilateral Eye EOMI HEENT: pharynx normal; No scleral icterus (R), No scleral icterus (L) Neck: non-tender, supple Respiratory: lungs clear, normal breath sounds, no respiratory distress, no accessory muscle use, other (pt is hesitant to take deep inspiration) Cardiovascular: regular rate, rhythm, no murmur Gastrointestinal: non tender, soft, no organomegaly, hernia (incisional hernia, umbilical hernia - both with fat in them) Rectal: deferred Back: CVA tenderness (R), CVA tenderness (L), decreased range of motion, other (pain on palpation of right scapula, no bruising or discoloration of back) Extremities: non-tender, no calf tenderness, pedal edema (pt says this is chronic and better than usual today, up to mid tibia bl) 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 Neri. I saw an incisional hernia and umbilical hernia, as well as the fractured ribs including the first rib on the right. I also thought there might be some early pulmonary contusions. CT also noted diffuse lytic lesions, the worst is at the left sacral ala. Pt will need to manage his pain, currently 5 out of 10; but should be able to do this from home. The most important thing he can do is continued use of incentive spirometer to prevent atalectasis and pneumonia. Pt should ambulate as tolerated; his body will tell him how much is too much. He should probably not lift anything over 20-30 lbs. These fractures could be related to lytic lesions secondary to the chronic multiple myeloma. Pt can follow up with PCP as outpt. Supervisory-Addendum Brief Verification & Attestation Participated in pt care: history, MDM, physical Personally performed: exam, history, MDM, supervision of care Care discussed with: Medical Student Procedures: n/a Verification and Attestation of Medical Student E/M Service A medical student performed and documented this service. I then reviewed and verified all information documented by the medical student and made modifications to such information, when appropriate. I personally performed a physical exam, medical decision making and then discussed any differences between the notes and made revisions as necessary to create one note. Shanique Lopes , 06/16/22 , 14:37 SUNITA MATOS Jun 16, 2022 11:54 SHANIQUE LOPES DO Jun 16, 2022 14:31
[2022-06-16 12:43] VITALS: BP 119/76
--- NOTE | 2022-06-16 12:48 | Short Stay Summary ---
MARKY SUMMERS 06/16/22 1248: HPI History of Present Illness: Michael Grimes, 66 yo M with a history of multiple myeloma, hypertension, and pneumonia, admitted to [place] [facility] from [facility] for pain management and incentive spirometry after sustaining multiple rib fractures due to a fall. Pt reports he was on a ladder when his foot got caught in a rung causing him to lose balance and land on his right side. CT of thoracic and lumbar spine was negative for acute thoracic or lumbar fracture, but noted a displaced right posterior 6th rib fracture, a non-displaced right posterior 1st rib fracture, and lytic changes consistent with multiple myeloma. CT chest, abdomen, pelvis revealed right 6, 7, 9 rib fractures and left 7th rib fracture with lytic lesions throughout spine and pelvis. Today Mr. Grimes is sitting up in a chair eating breakfast. This morning is his first time ambulating since being brought to the hospital and he is doing well on his own. Reports no troubles with urination or defecation but is concerned that he has not taken Miralax which he uses nightly at home. He reports a 6-7/10 right rib pain despite administration of Toradol, Morphine, and Percocet. Notes he takes Morphine sulfate 60 mg tabs BID as well as Oxycodone-Acetaminophen 5-325mg prn at home. Mentions he has had some shortness of breath and has been using spirometer as directed. Source: patient Exam Limitations: no limitations Date seen by provider: Jun 16, 2022 Time Seen by Provider: 08:40 Attending Physician Benny Roman MD PCP Admitting Physician: Moshe Chaparro MD Attending Physician: Tiana Neri MD Consult Date of Admission Jun 15, 2022 at 19:26 Home Medications Home Medications Reviewed patient Home Medication Reconciliation performed by pharmacy medication reconciliations hydro plant technician and/or nursing. Patients Allergies have been reviewed. Allergies Coded Allergies: thalidomide (Verified Allergy, Unknown, 06/15/22) CIB-Cgqopw-Yshmcr Hx Patient Social History Marrital Status: Smoking Status: Never a Smoker Alcohol Use?: No Have you traveled recently?: No Immunizations Up To Date Influenza Vaccine Up-to-Date: No; Not Current Past Medical History Multiple myeloma, hypertension, skin cancer, nephrectomy, esophageal stricture, pneumonia, presence of vascular implants and grafts Family Medical History Significant Family History: Cancer (mother had breast cancer), Hypertension (brother), Other Conditions/Hx (pt denies family history of DM and seizure disorder) Review of Systems ([facility]) Respiratory: see HPI Cardiovascular: see HPI Reviewed Test Results Reviewed Test Results Lab Laboratory Tests 06/15/22 16:00: Red Blood Count 3.98L, Hemoglobin 10.3L, Hematocrit 33L, Red Cell Distribution Width 16.9H, Monocytes (%) (Auto) 16H, Urine RBC (Auto) TRACE-IH, Urine Hyaline Casts 0-2H, Urine Mucus MODERATEH, Glucose Level 107H, Total Protein 5.6L 06/16/22 05:39: Hemoglobin 11.5L, Hematocrit 36L, Red Cell Distribution Width 16.4H, Monocytes (%) (Auto) 15H, Platelet Count 124L Radiology NAME: MICHAEL GRIMES [facility] REC#: [id number] PT STATUS: REG ER : 1955 PHYSICIAN: IMANI JACOBS MD ADMIT DATE: 06/15/22/ER FS Draft Date of Exam:06/15/22 CT THORACIC/LUMBAR SPINE WO PROCEDURE: CT thoracic and lumbar spine without contrast. TECHNIQUE: Multiple contiguous axial images were obtained through the thoracic and lumbar spine without the use of intravenous contrast. Sagittal and coronal reformations were then performed. All CT scans use one or more of the following dose optimizing techniques: automated exposure control, MA and/or KvP adjustment based on patient size and exam type or iterative reconstruction. INDICATION: 66-year-old male, status post fall off a ladder, approximately 2-3', landing on right side. CORRELATION STUDY: None. FINDINGS: There is extensive demineralized appearance about the osseous structures with multiple extensive lytic changes throughout all visualized osseous structures compatible with history of multiple myeloma. Mild compression deformity of superior T4 endplate appearing to be nonacute. An acute appearing compression deformity of the thoracic spine does not appear to be present. There are scattered areas of multiple anteriorly wedged vertebral bodies. Posterior elements intact. Lumbar spine demonstrates slight scalloping and intervertebral disc herniation at the superior L2 and L4 vertebral bodies appearing to be nonacute. Posterior elements are intact and normal in alignment. Various degrees of rather significant disc space narrowing. Most severe at the L4-L5 level with a markedly expanded appearance about the left sacral ala with soft tissue mass and extensive destructive change. Additional large lytic lesions about the right iliac bone. There is bony fusion across the right sacroiliac joint. Displaced right posterior 6th rib fracture. Nondisplaced right posterior 1st rib fracture. Trace pleural effusion and/or hemothorax. No significant visualized pneumothorax. IMPRESSION: 1. Negative for acute thoracic and/or lumbar spine fracture. 2. Displaced partially visualized right posterior 6th rib fracture along with a nondisplaced right posterior 1st rib fracture. 3. Extensive lytic changes throughout all visualized osseous structures consistent with extensive multiple myeloma. Largest destructive lesion involving the left sacral ala. Dictated on workstation # [id number] Dict: 06/15/22 1650 Trans: 06/15/22 1715 [id number] Interpreted by: PADMINI THOMAS DO Electronically signed by: NAME: MICHAEL GRIMES [facility] REC#: [id number] PT STATUS: REG ER : 1955 PHYSICIAN: IMANI JACOBS MD ADMIT DATE: 06/15/22/ER FS Draft Date of Exam:06/15/22 CT CHEST/ABDOMEN/PELVIS WO EXAMINATION: CT chest, abdomen and pelvis without intravenous contrast. TECHNIQUE: Multiple contiguous axial images were obtained through the chest, abdomen and pelvis without intravenous contrast. All CT scans use one or more of the following dose optimizing techniques: automated exposure control, MA and/or KvP adjustment based on patient size and exam type or iterative reconstruction. HISTORY: Chest and abdomen injury. COMPARISON: None available. FINDINGS: There is no edema or pneumonia. No pleural effusion. No pneumothorax. No suspicious nodules. There is no axillary or supraclavicular lymphadenopathy. There is no mediastinal lymphadenopathy. A left-sided portacatheter is present. Heart size is normal. There are mild coronary artery calcifications. No pericardial effusion. Aorta is normal in caliber. There are several low attenuating liver lesions, some of which are cysts and others are too small to characterize. There is no biliary ductal dilation. Gallbladder is normal. Pancreas is normal. Spleen is normal. Adrenal glands are normal. Left kidney is surgically absent. There is a cyst in the right kidney. No suspicious renal lesion. There is no hydronephrosis. Urinary bladder is normal. There has been a right colon resection. No bowel obstruction or inflammation. There is a small fat-containing ventral abdominal hernia.No free fluid or air. No abdominal or pelvic lymphadenopathy. Aorta is normal in caliber without aneurysm. There are lytic lesions scattered throughout the spine and pelvis including the largest lesion in S2 measuring 2.5 cm. There is a right 9th rib fracture. There is a right 7th rib fracture. There is a right 6th rib fracture. There is a left 7th rib fracture. Mild height loss at T12 would be better evaluated on dedicated thoracic and lumbar spine CT. IMPRESSION: 1. Right 6th, 7th and 9th rib fractures and left 7th rib fracture. 2. Lytic lesions throughout the spine and pelvis, correlate for any known malignancy. Dictated on workstation # [id number] Dict: 06/15/22 1653 Trans: 06/15/22 1708 [facility] [id number] Interpreted by: KOLBY MORALES MD Electronically signed by: Physical Exam-([facility]) Physical Exam Vital Signs VS - Last 72 Hours, by Label 06/15/22 06/15/22 06/15/22 06/15/22 15:53 15:53 18:38 19:53 Temp 36.7 36.5 36.5 36.5 Pulse 73 73 73 73 Resp 17 17 16 B/P (MAP) 170/95 (120) 170/95 (120) 137/73 Pulse Ox 98 98 O2 Delivery Room Air Room Air Room Air FiO2 21 06/15/22 06/15/22 06/15/22 06/15/22 20:00 20:37 22:43 23:01 Temp 36.6 Pulse 68 78 Resp 18 B/P (MAP) 167/92 (117) Pulse Ox 98 98 O2 Delivery Room Air Room Air Room Air 06/16/22 06/16/22 06/16/22 06/16/22 00:07 01:00 03:48 07:14 Temp 36.5 36.5 Pulse 68 64 67 70 Resp 18 18 B/P (MAP) 155/80 (105) 160/89 (112) Pulse Ox 98 98 O2 Delivery Room Air Room Air 06/16/22 06/16/22 07:50 08:00 Temp 36.5 Pulse 72 Resp 19 B/P (MAP) 164/89 (114) Pulse Ox 97 O2 Delivery Room Air Room Air Capillary Refill : Less Than 3 Seconds General Appearance: WD/WN, no apparent distress Respiratory: lungs clear, normal breath sounds, no respiratory distress Cardiovascular: regular rate, rhythm, no JVD, no murmur Peripheral Pulses: 3+ Radial Pulses (R), 3+ Radial Pulses (L) Neurologic/Psychiatric: alert, oriented x 3 Skin: normal color, warm/dry Short Stay Diagnosis Discharge Diagnosis-Short Stay Admission Diagnosis Multiple rib fractures due to fall Final Discharge Diagnosis Multiple rib fractures due to fall, hypertension, multiple myeloma, chronic pain Conclusion Plan Pt clear for discharge. Use spirometer at home to help prevent pneumonia. Pt currently using 60mg morphine BID at home and has 5-325mg tabs oxycodone-aceta minophen prn which he will use for breakthrough pain Assessment/Plan Assessment/Plan Admission Dx Multiple rib fracture Admission Status: Observation (1) Multiple rib fractures involving four or more ribs Onset Date: ~ 06/15/2022 Status: Acute Assessment & Plan: Multiple rib fractures due to fall. Hx of multiple myeloma and chronic pain. Pt currently using 60mg morphine BID at home and has 5-325mg tabs oxycodone-acetaminophen for breakthrough pain. TIANA NERI MD 06/16/22 1502: Home Medications Allergies Coded Allergies: thalidomide (Verified Allergy, Unknown, 06/15/22) Review of Systems ([facility]) Constitutional: see HPI Supervisory-Addendum Brief Verification & Attestation Participated in pt care: history, MDM, physical Personally performed: exam, history, MDM, supervision of care Care discussed with: Medical Student Procedures: n/a Pt seen by me along with medial student, I did my own history and exam which confirmed that documented by the medical student. Surgery consulted and also cleared for discharge. Plan of care directed by me as documented by medical student. MARKY SUMMERS Jun 16, 2022 12:48 TIANA NERI MD Jun 16, 2022 15:02
[2022-06-16 14:50] VITALS: BP 119/76
== END 2022-06-16 13:58 | disposition home or self-care (01) ==
LOC: EDUNIT# 15:50 → ER FS 15:51 → 4TH 19:26 → UNDOADMOB 19:26 → 4TH 19:47 → UNDODISOB 06-16 13:58
PROVIDERS: ADMIT Internal Medicine; ATTEND Family Medicine
DX: S22.41XA Multiple fractures of ribs, right side, initial encounter for closed fracture (principal); W11.XXXA Fall on and from ladder, initial encounter
CPT/HCPCS: 36415; 71250; 72128; 72131; 74176; 80048; 80053; 81000; 85025 ×2; 94664; 96375; 96376; 99284; G0378

== ENCOUNTER 2023-03-23 11:50 | Emergency (ER) | payer MEDICARE, OTHER ==
[~2023-03-23] VITALS: Ht 177.8 cm; Wt 107.3 kg
[~2023-03-23 11:50] MED LIST: ACYC-108 PO; AMLO-251 PO; APIX5TAB PO; BORT3.5V IJ; DEXA4TAB PO; MORP60TA69 PO; OXYC1TAB11 PO; PANT40TA52 PO; POLY17PO6 PO; SOTA120T PO
[2023-03-23 12:14] LABS: BASOPHILS % (AUTO) 0 % (0-10); EOSINOPHILS # (AUTO) 0.1 10^3/uL (0.0-0.3); EOSINOPHILS % (AUTO) 1 % (0-10); HEMATOCRIT 28 % (40-54); HEMOGLOBIN 8.4 g/dL (13.3-17.7); LYMPHOCYTES # (AUTO) 1.4 10^3/uL (1.0-4.0); LYMPHOCYTES % (AUTO) 23 % (12-44); MEAN CORPUSCULAR HEMOGLOBIN 23 pg (25-34); MEAN CORPUSCULAR HGB CONC 30 g/dL (32-36); MEAN CORPUSCULAR VOLUME 77 fL (80-99); MEAN PLATELET VOLUME 9.9 fL (9.0-12.2); MONOCYTES # (AUTO) 0.8 10^3/uL (0.0-1.0); MONOCYTES % (AUTO) 14 % (0-12); NEUTROPHILS # (AUTO) 3.9 10^3/uL (1.8-7.8); NEUTROPHILS % (AUTO) 62 % (42-75); PLATELET COUNT 165 10^3/uL (130-400); WHITE BLOOD COUNT 6.2 10^3/uL (4.3-11.0)
--- NOTE | 2023-03-23 12:30 | Diagnostic Imaging Report ---
INDICATION: Shortness of breath. FINDINGS: There is cardiomegaly. There appears to be old bilateral rib fractures and some mild venous congestion. Mediastinum is unremarkable. There is no pleural effusion or pneumothorax. Left subclavian central venous catheter has its tip in superior vena cava. IMPRESSION: Cardiomegaly and some questionable minimal central pulmonary venous congestion. Dictated by: Dictated on workstation # [id number]
--- NOTE | 2023-03-23 12:33 | ED General ---
General Chief Complaint: General Problems/Pain Stated Complaint: SOB; GEN WEAKNESS Source of Information: Patient, Spouse History of Present Illness Date Seen by Provider: Mar 23, 2023 Time Seen by Provider: 11:56 Initial Comments 67-year-old male with history of multiple myeloma that recently was found to be anemic with Hemoglobin around 8.4 on March 12. He has been scheduled to have an iron infusion on the of the month. He follows with oncology out of [facility] in [place]. He has been having increased fatigue and shortness of breath with exertion and at the cancer center have advised that he come to the emergency department to get blood work done to see if his hemoglobin had dropped further or if he was remaining stable on his blood count. He denies any fall or injury, fever, chills, abdominal pain, chest pain. He does feel short of breath with exertion. Timing/Duration: Getting Worse (Over the last few weeks) Severity: Moderate Modifying Factors: worse with Movement (Activity makes him more short of breath and fatigue) Associated Systoms: No Chest Pain, No Cough, No Diaphoresis, No Fever/Chills, No Headaches, No Loss of Appetite; Malaise; No Nausea/Vomiting, No Rash, No Seizure; Shortness of Air; No Syncope; Weakness (Generalized) Allergies and Home Medications Allergies Coded Allergies: thalidomide (Verified Allergy, Unknown, 06/15/22) Patient Home Medication List Home Medication List Reviewed: Yes Acyclovir (Acyclovir) 200 Mg Capsule, 400 MG PO BID, (Reported) Entered as Reported by: BREANNA GUERRERO on 06/16/22 1000 Amlodipine Besylate (Amlodipine Besylate) 10 Mg Tablet, 10 MG PO DAILY, (Reported) Entered as Reported by: TIANA NERI on 06/16/22 0809 Apixaban (Eliquis) 5 Mg Tablet, 5 MG PO BID, (Reported) Entered as Reported by: BREANNA GUERRERO on 06/16/22 1000 Bortezomib (Velcade) 3.5 Mg Soln, 3.5 MG IJ [id number], (Reported) Entered as Reported by: BREANNA GUERRERO on 06/16/22 1002 Dexamethasone (Dexamethasone) 4 Mg Tablet, 20 MG PO THURSDAY, (Reported) Entered as Reported by: BREANNA GUERRERO on 06/16/22 1000 Morphine Sulfate (Morphine Sulfate ER) 60 Mg Tablet.er, 60 MG PO BID, (Reported) Entered as Reported by: BREANNA GUERRERO on 06/16/22 1000 Oxycodone HCl/Acetaminophen (Oxycodone-Acetaminophen 5-325) 5 Mg-325 Mg Tablet, 1 EACH PO Q4H PRN for PAIN-MODERATE (5-7), (Reported) Entered as Reported by: BREANNA GUERRERO on 06/16/22 1000 Pantoprazole Sodium (Pantoprazole Sodium) 40 Mg Tablet.dr, 40 MG PO DAILY, (Reported) Entered as Reported by: BREANNA GUERRERO on 06/16/22 1000 Polyethylene Glycol 3350 (Miralax) 17 Gram Powd.pack, 17 GM PO DAILY, (Reported) Entered as Reported by: BREANNA GUERRERO on 06/16/22 1002 Sotalol HCl (Sotalol) 120 Mg Tablet, 120 MG PO BID, (Reported) Entered as Reported by: BREANNA GUERRERO on 06/16/22 1000 Review of Systems Review of Systems Constitutional: No chills, No fever; malaise, weakness EENTM: no symptoms reported Respiratory: dyspnea on exertion Cardiovascular: No chest pain Gastrointestinal: no symptoms reported Genitourinary: no symptoms reported Musculoskeletal: no symptoms reported Skin: change in color (Appears more pale) Psychiatric/Neurological: No Symptoms Reported Past Rgdcsml-Gplxjy-Jnoghr Hx Patient Social History Tobacco Use?: No Use of E-Cig and/or Vaping dev: No Substance use?: No Alcohol Use?: No Pt feels they are or have been: No Immunizations Up To Date Influenza Vaccine Up-to-Date: Yes; Up-to-Date Past Medical History Surgery/Hospitalization HX: Bone CA, multiple myeloma, anemia Surgeries: Yes (multiple skin cancers romoved, pt was unsure of pathological findings) Abdominal, Cardiac, Nephrectomy Respiratory: Yes Asthma Cardiac: Yes Hypertension Neurological: No (pt denies stroke or seizure) Genitourinary: No (hx of nephrectomy, he donated it ) Gastrointestinal: Yes (pt also reports esophageal structure) Crohns Disease, Obstructive Bowel Musculoskeletal: Yes Arthritis Endocrine: No (pt denies DM) Cancer: Yes (multiple myeloma and skin cancer- pt unsure of what type) Psychosocial: No Family Medical History Cancer, Hypertension, Other Conditions/Hx Physical Exam Vital Signs Vital Signs - First Documented 03/23/23 03/23/23 11:57 13:07 Temp 37.0 Pulse 68 Resp 18 B/P (MAP) 140/85 (103) Pulse Ox 96 O2 Delivery Room Air Capillary Refill : Height, Weight, BMI Height: '" Weight: lbs. oz. kg; 32.58 BMI Method: General Appearance: No Apparent Distress, WD/WN HEENT: PERRL/EOMI, Pharynx Normal Respiratory: Chest Non Tender, Lungs Clear, Normal Breath Sounds, No Accessory Muscle Use, No Respiratory Distress Cardiovascular: Regular Rate, Rhythm, Normal Peripheral Pulses Gastrointestinal: Normal Bowel Sounds, No Pulsatile Mass, Non Tender, Soft Extremity: Normal Capillary Refill, Normal Inspection, No Pedal Edema Neurologic/Psychiatric: Alert, Oriented x3, senior sales compensation analyst II-XII Norm as Tested Skin: Warm/Dry, Pallor Progress/Results/Core Measures Suspected Sepsis SIRS Temperature: Pulse: Respiratory Rate: Laboratory Tests 03/23/23 12:05: White Blood Count 6.2 Blood Pressure / Mean: Laboratory Tests 03/23/23 12:05: Creatinine 1.17, Platelet Count 165, Total Bilirubin 0.4 Results/Orders Lab Results Laboratory Tests Test 03/23/23 12:05 Range/Units White Blood Count 6.2 4.3-11.0 10^3/uL Red Blood Count 3.59 L 4.30-5.52 10^6/uL Hemoglobin 8.4 L 13.3-17.7 g/dL Hematocrit 28 L 40-54 % Mean Corpuscular Volume 77 L 80-99 fL Mean Corpuscular Hemoglobin 23 L 25-34 pg Mean Corpuscular Hemoglobin Concent 30 L 32-36 g/dL Red Cell Distribution Width 15.0 H 10.0-14.5 % Platelet Count 165 130-400 10^3/uL Mean Platelet Volume 9.9 9.0-12.2 fL Immature Granulocyte % (Auto) 1 % Neutrophils (%) (Auto) 62 42-75 % Lymphocytes (%) (Auto) 23 12-44 % Monocytes (%) (Auto) 14 H 0-12 % Eosinophils (%) (Auto) 1 0-10 % Basophils (%) (Auto) 0 0-10 % Neutrophils # (Auto) 3.9 1.8-7.8 10^3/uL Lymphocytes # (Auto) 1.4 1.0-4.0 10^3/uL Monocytes # (Auto) 0.8 0.0-1.0 10^3/uL Eosinophils # (Auto) 0.1 0.0-0.3 10^3/uL Basophils # (Auto) 0.0 0.0-0.1 10^3/uL Immature Granulocyte # (Auto) 0.0 0.0-0.1 10^3/uL Sodium Level 142 135-145 MMOL/L Potassium Level 4.0 3.6-5.0 MMOL/L Chloride Level 103 98-107 MMOL/L Carbon Dioxide Level 31 21-32 MMOL/L Anion Gap 8 5-14 MMOL/L Blood Urea Nitrogen 12 7-18 MG/DL Creatinine 1.17 0.60-1.30 MG/DL Estimat Glomerular Filtration Rate 69 BUN/Creatinine Ratio 10 Glucose Level 97 70-105 MG/DL Calcium Level 9.0 8.5-10.1 MG/DL Corrected Calcium 9.3 8.5-10.1 MG/DL Total Bilirubin 0.4 0.1-1.0 MG/DL Aspartate Amino Transf (AST/SGOT) 11 5-34 U/L Alanine Aminotransferase (ALT/SGPT) 7 0-55 U/L Alkaline Phosphatase 72 40-136 U/L C-Reactive Protein < 0.30 <0.50 MG/DL Total Protein 5.7 L 6.4-8.2 GM/DL Albumin 3.6 3.2-4.5 GM/DL My Orders Orders - HARRY MORALES MD Cbc With Automated Diff (03/23/23 12:06) Comprehensive Metabolic Panel (03/23/23 12:06) Chest 1 View Ap/Pa Only (03/23/23 12:06) Ekg Tracing (03/23/23 12:06) Ed Iv/Invasive Line Start (03/23/23 12:06) Monitor-Rhythm Ecg Trace Only (03/23/23 12:06) Crp Fs (03/23/23 12:06) Vital Signs/I&O 03/23/23 03/23/23 11:57 13:07 Temp 37.0 Pulse 68 60 Resp 18 B/P (MAP) 140/85 (103) 124/65 Pulse Ox 96 O2 Delivery Room Air Room Air Capillary Refill : Progress Note #1: Progress Note Potential diagnosis of anemia, pneumonia, electrolyte imbalance, dehydration. Obtain peripheral IV access and send labs for complete blood count, comprehensive metabolic profile. His initial blood pressure was 124/65. Ordered 1 view chest x-ray to evaluate for possible pathology in his chest to be causing his symptoms of shortness of breath with exertion. Progress Note #2: Progress Note Labs came back showing his hemoglobin was 8.4 which would make him stable from what the family was reporting. His white blood cell count was normal at 6.2. He did not have any acute electrolyte abnormality to account for his weakness and shortness of breath. Reassured patient that his hemoglobin appears stable and recommend that they follow-up with the cancer center out of [place] to see if they wanted to try and get his iron infusion done sooner or possibly transfuse him. Typically transfusion would only happen if the hemoglobin was under 7. Diagnostic Imaging Diagonstic Imaging: Xray Plain Films/CT/US/NM/MRI: chest Comments NAME: MICHAEL GRIMES MED REC#: [id number] PT STATUS: REG ER : 1955 PHYSICIAN: HARRY MORALES MD ADMIT DATE: 03/23/23/ER FS Draft Date of Exam:03/23/23 CHEST 1 VIEW AP/PA ONLY INDICATION: Shortness of breath. FINDINGS: There is cardiomegaly. There appears to be old bilateral rib fractures and some mild venous congestion. Mediastinum is unremarkable. There is no pleural effusion or pneumothorax. Left subclavian central venous catheter has its tip in superior vena cava. IMPRESSION: Cardiomegaly and some questionable minimal central pulmonary venous congestion. Dictated on workstation # [id number] Dict: 03/23/23 1225 Trans: 03/23/23 1229 [id number] Interpreted by: TERESO DALLAS MD Electronically signed by: Reviewed: Reviewed by Me Departure Impression Primary Impression: Anemia Qualified Codes: D50.9 - Iron deficiency anemia, unspecified Additional Impression: Short of breath on exertion Disposition: 01 HOME, SELF-CARE Condition: Stable Departure-Patient Inst. Decision time for Depature: 12:55 Referrals: ZAIN DEL TORO MD (PCP) Primary Care Physician Patient Instructions: Anemia, Possibly From Low Iron, Adult ED, Shortness of Breath, Adult ED Add. Discharge Instructions: Your hemoglobin today was 8.4. Check back with your oncology doctor about the iron infusion and see if they wanted to try and get you set up for additional blood work or try and arrange for a blood transfusion. Usually the blood transfusions would be if your hemoglobin was under 7. All discharge instructions reviewed with patient and/or family. Voiced understanding. HARRY MORALES MD Mar 23, 2023 12:33
[2023-03-23 12:44] LABS: ALANINE AMINOTRANSFERASE 7 U/L (0-55); ALBUMIN 3.6 GM/DL (3.2-4.5); ALKALINE PHOSPHATASE 72 U/L (40-136); BILIRUBIN,TOTAL 0.4 MG/DL (0.1-1.0); BUN/CREATININE RATIO 10; CARBON DIOXIDE 31 MMOL/L (21-32); CHLORIDE 103 MMOL/L (98-107); CREATININE SERUM 1.17 MG/DL (0.60-1.30); GFR ESTIMATED 69; GLUCOSE 97 MG/DL (70-105); SODIUM 142 MMOL/L (135-145); TOTAL PROTEIN 5.7 GM/DL (6.4-8.2)
[2023-03-23 13:07] VITALS: BP 124/65
== END 2023-03-23 13:07 | disposition home or self-care (01) ==
LOC: EDUNIT# 11:50 → ER FS 11:51
DX: R06.02 Shortness of breath (principal); D50.9 Iron deficiency anemia, unspecified; C90.00 Multiple myeloma not having achieved remission; Z28.310 Unvaccinated for COVID-19
CPT/HCPCS: 36415; 71045; 80053; 85025; 86141; 93005; 93041

== ENCOUNTER 2023-07-18 17:50 | Emergency (ER) | payer MEDICARE, OTHER ==
[2023-07-18] MEDS ORDERED: methylPREDNISolone INJ 125 MG VIAL IV STA (17:53)
[2023-07-18] MEDS ORDERED: FUROSEMIDE INJECTION 40 MG/4 ML VIAL IVP ONE (18:00)
[2023-07-18] MEDS ORDERED: dilTIAZem DRIP PRE-MIX 125 ML IV SCH (18:00)
[2023-07-18] MEDS ORDERED: dilTIAZem INJ 25 MG/5 ML VIAL IVP ONE (18:00)
[2023-07-18] MEDS ORDERED: RT-LEVALBUTEROL 1.25 MG/3 ML NEBS (NON-FORMULARY) ONE (18:04)
[2023-07-18 18:11] LABS: BASOPHILS % (AUTO) 0 % (0-10); EOSINOPHILS % (AUTO) 0 % (0-10); HEMATOCRIT 41 % (40-54); HEMOGLOBIN 12.9 g/dL (13.3-17.7); LYMPHOCYTES # (AUTO) 1.2 10^3/uL (1.0-4.0); LYMPHOCYTES % (AUTO) 12 % (12-44); MEAN CORPUSCULAR HEMOGLOBIN 26 pg (25-34); MEAN CORPUSCULAR HGB CONC 32 g/dL (32-36); MEAN CORPUSCULAR VOLUME 82 fL (80-99); MEAN PLATELET VOLUME 10.4 fL (9.0-12.2); MONOCYTES # (AUTO) 0.8 10^3/uL (0.0-1.0); MONOCYTES % (AUTO) 8 % (0-12); NEUTROPHILS % (AUTO) 79 % (42-75); PLATELET COUNT 207 10^3/uL (130-400); WHITE BLOOD COUNT 10.1 10^3/uL (4.3-11.0)
[2023-07-18] MEDS ORDERED: RT-Ipratropium/Albuterol NEB 3 ML VIAL INH ONE (18:15)
--- NOTE | 2023-07-18 18:15 | Diagnostic Imaging Report ---
HISTORY: Shortness of breath. TECHNIQUE: Frontal view of the chest. COMPARISON: 03/23/2023. FINDINGS: Lung volumes are normal. There is mild atelectasis in the lung bases. There is no significant pleural effusion or pneumothorax. The cardiac silhouette is stable in size. Left-sided central line projects over the SVC. There are old rib fractures, bilaterally. IMPRESSION: Mild bibasilar atelectasis with no acute pulmonary abnormality seen. Dictated by: Dictated on workstation # [id number]
--- NOTE | 2023-07-18 18:21 | ED Cardiac General ---
History of Present Illness General Chief Complaint: Cardiac/General Problems Stated Complaint: SOB Nursing Triage Note: PT CALLED EMS FOR SOB. UPON ARRIVAL PT WAS NOTED TO BE IN A-FIB W/RVR. 20MG OF CARDIAZEM GIVEN BY EMS WHICH BROUGHT THE PTS HEART RATE DOWN TO 102 BUT ONLY LAST A FEW MINUTES BEFORE IT WENT BACK TO 150-180. History of Present Illness Date Seen by Provider: Jul 18, 2023 Time Seen by Provider: 17:50 Initial Comments 68-year-old male with PMH of multiple myeloma with mets/HTN/asthma/Crohn's disease/nephrectomy (donated a kidney to his son)/multiple old rib fractures, is brought in by EMS with complaints of shortness of breath and fever since Thursday. is contributing to the history and reports that patient has been lethargic and tired and has not been feeling well for the past few days, with fever and cough, and shortness of breath. Patient's family members, grandkids are all sick and he has been around them all week. Patient is not on home oxygen and he is not a smoker. Denies chest pain, abdominal pain, nausea and vomiting, dizziness, headache. Patient has been having about 2 episodes of diarrhea per day since he became sick. Patient is able to give a history and is speaking in complete sentences, however he becomes breathless after 2-3 long sentences. Pt's appetite has been appropriate as per . Allergies and Home Medications Allergies Coded Allergies: thalidomide (Verified Allergy, Unknown, 06/15/22) Patient Home Medication List Home Medication List Reviewed: Yes Acyclovir (Acyclovir) 200 Mg Capsule, 400 MG PO BID, (Reported) Entered as Reported by: BREANNA GUERRERO on 06/16/22 1000 Amlodipine Besylate (Amlodipine Besylate) 10 Mg Tablet, 10 MG PO DAILY, (Reported) Entered as Reported by: TIANA NERI on 06/16/22 0809 Apixaban (Eliquis) 5 Mg Tablet, 5 MG PO BID, (Reported) Entered as Reported by: BREANNA GUERRERO on 06/16/22 1000 Bortezomib (Velcade) 3.5 Mg Soln, 3.5 MG IJ [id number], (Reported) Entered as Reported by: BREANNA GUERRERO on 06/16/22 1002 Dexamethasone (Dexamethasone) 4 Mg Tablet, 20 MG PO THURSDAY, (Reported) Entered as Reported by: BREANNA GUERRERO on 06/16/22 1000 Morphine Sulfate (Morphine Sulfate ER) 60 Mg Tablet.er, 60 MG PO BID, (Reported) Entered as Reported by: BREANNA GUERRERO on 06/16/22 1000 Oxycodone HCl/Acetaminophen (Oxycodone-Acetaminophen 5-325) 5 Mg-325 Mg Tablet, 1 EACH PO Q4H PRN for PAIN-MODERATE (5-7), (Reported) Entered as Reported by: BREANNA GUERRERO on 06/16/22 1000 Pantoprazole Sodium (Pantoprazole Sodium) 40 Mg Tablet.dr, 40 MG PO DAILY, (Reported) Entered as Reported by: BREANNA GUERRERO on 06/16/22 1000 Polyethylene Glycol 3350 (Miralax) 17 Gram Powd.pack, 17 GM PO DAILY, (Reported) Entered as Reported by: BREANNA GUERRERO on 06/16/22 1002 Sotalol HCl (Sotalol) 120 Mg Tablet, 120 MG PO BID, (Reported) Entered as Reported by: BREANNA GUERRERO on 06/16/22 1000 Review of Systems Review of Systems Constitutional: chills, fever, malaise EENTM: Nose Congestion Respiratory: Cough, Shortness of Air Cardiovascular: Irregular Heart Rate, Palpitations Gastrointestinal: Diarrhea Genitourinary: No Symptoms Reported Musculoskeletal: no symptoms reported Skin: no symptoms reported Psychiatric/Neurological: No Symptoms Reported Endocrine: No Symptoms Reported Hematologic/Lymphatic: No Symptoms Reported Past Xmowyhm-Fcuhfc-Mklbit Hx Patient Social History Tobacco Use?: No Use of E-Cig and/or Vaping dev: No Substance use?: No Alcohol Use?: No Pt feels they are or have been: No Immunizations Up To Date Influenza Vaccine Up-to-Date: No; Not Current Past Medical History Surgery/Hospitalization HX: Bone CA, multiple myeloma, anemia Surgeries: Yes (multiple skin cancers romoved, pt was unsure of pathological findings) Abdominal, Cardiac, Nephrectomy Respiratory: Yes Asthma Cardiac: Yes Hypertension Neurological: No (pt denies stroke or seizure) Genitourinary: No (hx of nephrectomy, he donated it ) Gastrointestinal: Yes (pt also reports esophageal structure) Crohns Disease, Obstructive Bowel Musculoskeletal: Yes Arthritis Endocrine: No (pt denies DM) Cancer: Yes (multiple myeloma and skin cancer- pt unsure of what type) Psychosocial: No Family Medical History Cancer, Hypertension, Other Conditions/Hx Physical Exam Vital Signs Vital Signs - First Documented 07/18/23 17:50 Temp 37.2 Pulse 178 Resp 18 B/P (MAP) 150/98 (115) Pulse Ox 92 O2 Delivery Nasal Cannula O2 Flow Rate 4.00 Capillary Refill : Less Than 3 Seconds Height, Weight, BMI Height: '" Weight: lbs. oz. kg; 33.00 BMI Method: General Appearance: Chronically ill, Mild Distress HEENT: PERRL/EOMI, Normal ENT Inspection Neck: Full Range of Motion, Normal Inspection, Non Tender Respiratory: Chest Non Tender, No Accessory Muscle Use, Rales, Rhonci, Other (Patient is speaking in clear sentences but becomes breathless after a couple of sentences.) Cardiovascular: Normal Peripheral Pulses, Irregularly Irregular, Tachycardia, Other (Bilateral nonpitting edema of lower extremities) Extremity: Normal Range of Motion Neurologic/Psychiatric: Alert, Oriented x3, No Motor/Sensory Deficits Skin: Normal Color Focused Exam Lactate Level 07/18/23 17:55: Lactic Acid Level 3.88*H Lactic Acid Level Laboratory Tests Test 07/18/23 17:55 Lactic Acid Level 3.88 MMOL/L (0.50-2.00) *H Progress/Results/Core Measures Results/Orders Lab Results Laboratory Tests Test 07/18/23 17:55 07/18/23 18:13 07/18/23 19:19 Range/Units White Blood Count 10.1 4.3-11.0 10^3/uL Red Blood Count 5.03 4.30-5.52 10^6/uL Hemoglobin 12.9 L 13.3-17.7 g/dL Hematocrit 41 40-54 % Mean Corpuscular Volume 82 80-99 fL Mean Corpuscular Hemoglobin 26 25-34 pg Mean Corpuscular Hemoglobin Concent 32 32-36 g/dL Red Cell Distribution Width 22.4 H 10.0-14.5 % Platelet Count 207 130-400 10^3/uL Mean Platelet Volume 10.4 9.0-12.2 fL Immature Granulocyte % (Auto) 1 % Neutrophils (%) (Auto) 79 H 42-75 % Lymphocytes (%) (Auto) 12 12-44 % Monocytes (%) (Auto) 8 0-12 % Eosinophils (%) (Auto) 0 0-10 % Basophils (%) (Auto) 0 0-10 % Neutrophils # (Auto) 8.0 H 1.8-7.8 10^3/uL Lymphocytes # (Auto) 1.2 1.0-4.0 10^3/uL Monocytes # (Auto) 0.8 0.0-1.0 10^3/uL Eosinophils # (Auto) 0.0 0.0-0.3 10^3/uL Basophils # (Auto) 0.0 0.0-0.1 10^3/uL Immature Granulocyte # (Auto) 0.1 0.0-0.1 10^3/uL Prothrombin Time 12.6 12.2-14.7 SEC INR Comment 0.9 0.8-1.4 Activated Partial Thromboplast Time 30 24-35 SEC D-Dimer 0.54 H 0.00-0.49 UG/ML Sodium Level 133 L 135-145 MMOL/L Potassium Level 4.6 3.6-5.0 MMOL/L Chloride Level 95 L 98-107 MMOL/L Carbon Dioxide Level 24 21-32 MMOL/L Anion Gap 14 5-14 MMOL/L Blood Urea Nitrogen 16 7-18 MG/DL Creatinine 1.01 0.60-1.30 MG/DL Estimat Glomerular Filtration Rate 82 BUN/Creatinine Ratio 16 Glucose Level 117 H 70-105 MG/DL Lactic Acid Level 3.88 *H 0.50-2.00 MMOL/L Calcium Level 9.3 8.5-10.1 MG/DL Corrected Calcium 9.9 8.5-10.1 MG/DL Magnesium Level 2.3 1.6-2.4 MG/DL Total Bilirubin 0.6 0.1-1.0 MG/DL Aspartate Amino Transf (AST/SGOT) 38 H 5-34 U/L Alanine Aminotransferase (ALT/SGPT) 12 0-55 U/L Alkaline Phosphatase 89 40-136 U/L Troponin I < 0.30 <0.30 NG/ML C-Reactive Protein 6.53 H <0.50 MG/DL Pro-B-Type Natriuretic Peptide 6166.0 H <125.0 PG/ML Total Protein 7.4 6.4-8.2 GM/DL Albumin 3.2 3.2-4.5 GM/DL Influenza Type A (RT-PCR) Not Detected Not Detecte Influenza Type B (RT-PCR) Not Detected Not Detecte SARS-CoV-2 RNA (RT-PCR) Not Detected Not Detecte Urine Color YELLOW Urine Clarity CLEAR Urine pH 7.0 5-9 Urine Specific [place] 1.010 L 1.016-1.022 Urine Protein 1+ H NEGATIVE Urine Glucose (UA) NEGATIVE NEGATIVE Urine Ketones NEGATIVE NEGATIVE Urine Nitrite NEGATIVE NEGATIVE Urine Bilirubin NEGATIVE NEGATIVE Urine Urobilinogen 0.2 < = 1.0 MG/DL Urine Leukocyte Esterase NEGATIVE NEGATIVE Urine RBC (Auto) TRACE-I H NEGATIVE Urine RBC 5-10 H /HPF Urine WBC NONE /HPF Urine Squamous Epithelial Cells 0-2 /HPF Urine Crystals NONE /LPF Urine Bacteria TRACE /HPF Urine Casts NONE /LPF Urine Mucus NEGATIVE /LPF Urine Culture Indicated NO Arterial Blood pH 7.57 H 7.37-7.43 Arterial Blood Partial Pressure CO2 31 L 35-45 MMHG Arterial Blood Partial Pressure O2 56 L 79-93 MMHG Arterial Blood HCO3 28 H 23-27 MMOL/L Arterial Blood Total CO2 29.4 21.0-31.0 MMOL/L Arterial Blood Oxygen Saturation 90 L 94-100 % Arterial Blood Base Excess 6.5 H -2.5-2.5 MMOL/L Blood Gas Ventilator Setting NO Blood Gas Inspired Oxygen 10 My Orders Orders - IMANI JACOBS MD Diltiazem Drip Pre-Mix (Diltiazem Drip P (07/18/23 18:00) Diltiazem Injection (Diltiazem Injection (07/18/23 18:00) Furosemide Injection (Furosemide Injec (07/18/23 18:00) Chest 1 View Ap/Pa Only (07/18/23 17:52) Methylprednisolone Sod Succ (Methylpredn (07/18/23 17:53) Continuous Ekg Monitoring (07/18/23 18:02) Ekg Tracing (07/18/23 18:02) Cbc And Automated Diff (07/18/23 18:02) Comprehensive Metabolic Panel (07/18/23 18:02) Fibrin Degradation Products (07/18/23 18:02) Magnesium (07/18/23 18:02) Protime With Inr (07/18/23 18:02) Partial Thromboplastin Time (07/18/23 18:02) Ua Culture If Indicated (07/18/23 18:02) Blood Culture (07/18/23 18:02) Influenza A And B By Pcr (07/18/23 18:02) Sputum Culture (07/18/23 18:02) Probnp Fs (07/18/23 18:02) Crp Fs (07/18/23 18:02) Troponin I Fs (07/18/23 18:02) Lactic Acid Analyzer (07/18/23 18:02) Covid 19 Inhouse Test (07/18/23 18:02) Levalbuterol (Non-Formulary) (Levalbuter (07/18/23 18:04) Ipratropium/Albuterol Inh Soln (Ipratrop (07/18/23 18:15) Svn Small Volume Nebulizer (07/18/23 18:11) Ed Iv/Invasive Line Start (07/18/23 18:27) Ed Iv/Invasive Line Start (07/18/23 18:27) Vital Signs Adult Sepsis Patie Q15M (07/18/23 18:27) O2 (07/18/23 18:27) Ns Iv 1000 Ml (Ns Iv 1000 Ml) (07/18/23 18:30) Cefepime Injection (Cefepime Injection) (07/18/23 18:30) Ct Angio Chest W (07/18/23 18:36) Catheter(Urinary) Insert & Ass 03,15 (07/18/23 18:42) Lidocaine 2% (Urojet) (Lidocaine 2% (Uro (07/18/23 18:45) Iohexol Injection (Omnipaque 350 Mg/Ml 1 (07/18/23 18:45) Received Contrast (Hold Metformin- Contr (07/18/23 18:45) Ns (Ivpb) 100 Ml (Sodium Chloride 0.9% 1 (07/18/23 18:45) Arterial Blood Gas (07/18/23 19:19) Medications Given in ED Current Medications Medications Dose Ordered Sig/Chanel Route Start Time Stop Time Status Last Admin Dose Admin Albuterol/ Ipratropium 3 ml ONCE ONCE INH 07/18/23 18:15 07/18/23 18:16 DC 07/18/23 18:17 3 ML Cefepime HCl 1000 mg/Sodium Chloride 50 ml @ 100 mls/hr ONCE ONCE IV 07/18/23 18:30 11/11/23 18:59 DC 07/18/23 19:23 100 MLS/HR Diltiazem HCl 10 mg ONCE ONCE IVP 07/18/23 18:00 07/18/23 18:01 DC 07/18/23 17:57 10 MG Furosemide 40 mg ONCE ONCE IVP 07/18/23 18:00 07/18/23 18:01 DC 07/18/23 17:59 40 MG Iohexol 100 ml ONCE ONCE IV 07/18/23 18:45 07/18/23 18:46 UNV 07/18/23 19:20 80 ML Lidocaine HCl 10 ml ONCE ONCE TOP 07/18/23 18:45 07/18/23 18:46 UNV 07/18/23 18:49 10 ML Sodium Chloride 100 ml ONCE ONCE IV 07/18/23 18:45 07/18/23 18:46 UNV 07/18/23 19:16 100 ML Vital Signs/I&O 07/18/23 07/18/23 07/18/23 07/18/23 17:50 17:57 18:00 18:38 Temp 37.2 Pulse 178 141 157 Resp 18 B/P (MAP) 150/98 (115) 150/98 150/98 Pulse Ox 92 91 O2 Delivery Nasal Cannula OxyMask O2 Flow Rate 4.00 6.00 Blood Pressure Mean: 115 Progress Progress Note : Progress Note 1. A-FIB RVR/ FLASH PULMONARY EDEMA: - CXR: (Done after Lasix was given) Mild bibasilar atelectasis with no acute pulmonary abnormality seen - Troponin: undetectable - BNP:elevated 6,166 - EKG shows A-Fib in RVR - Cardizem 20mg iv given by EMS in the field and hear rate had improved to 102 for them but came back up to 160's by the time they came to the ER - In the ER: Cardizem bolus 10mg, and Cardizem drip started - Lasix 40mg iv STAT - Diez cath insertion for I/O monitoring -After administering Cardizem, patient's heart rate has improved to 96/min and A-fib is rate controlled with Cardizem at this time. - Pt's skin former is at and pt and want to go to for admission. Pt's skin former is Dr Ramy Blevins at . - Discussed with transfer team at , pt accepted for admission at , and accepting hospitalist is Dr. Phillip Del Castillo. - Pt will be flown to by helicopter since we do not have an available ambulance to take the pt at this time. 2. SEPSIS/ VIRAL ILLNESS/VIRAL PNEUMONIA: - CXR: Mild bibasilar atelectasis with no acute pulmonary abnormality seen. - Blood cultures sent. - WBC is normal, neutrophils elevated - Lactic Acid: elevated: 3.88 - CRP elevated: 6.53 - UA: negative for infection - Pt has been ill the past few days with a possible viral illness, which he contracted from other family members who were also ill. Pt is also immunocompromised due to multiple myeloma.This seems to be the most likely cause of sepsis at this point in time. Pt is receiving infusions for his multiple myeloma, and his oncologist is Dr. Dempsey at [facility] in [place]. - NS IVF bolus & Cefepime iv 1 gm started 3. ACUTE ASTHMA EXACERBATION WITH HYPOXIA: - Duo neb x 2: (First treatment given by EMS, and second one in ER) - Solumedrol 125mg iv STAT - Pt is on oxy mask and on 5L to 6L of oxygen while moving around, and lowered to 3 to 4 L when lying still. O2 sat is fluctuating between 88%- 97% depending on whether pt is lying still or moving around. Pt feels much better after receiving treatments. - ABG ordered: showing a primary metabolic alkalosis with secondary respiratory acidosis, likely due to A-fib and lactic acidosis. A-fib stabilized and heart rate is 93, calcium levels are normal, and patient is on oxygen. 4. ELEVATED D-DIMER: - D-dimer: 0.54 - Pt only has one kidney, but his creatinine is stable. Will give NS IVF after CTA is done. - D-dimer is marginally elevated but due to pt's risk factors, he has been immobile due to illness the past few days with bilateral non-pitting lower extremity edema, and also has cancer, so will do CTA. We do not have ultrasound at this time, so unable to do a DOppler u/s of legs. - CTA CHEST: No pulmonary embolus. Groundglass, airspace and tree-in-bud opacities in the lung bases, concerning for infection. Heterogeneous density of the bony structures with multiple lytic lesions and chronic appearing compression deformities in the spine. This is likely due to multiple myeloma or metastatic disease. - Pt is on Eliquis at home and is compliant with his medications. Initial ECG Impression Date: Jul 18, 2023 Initial ECG Impression Time: 18:02 Initial ECG Rate: 136 Initial ECG Rhythm: A Fib/Flutter Initial ECG Impression: Atrial Fibrillation w/RVR Initial ECG Comparisson: No Previous ECG Available Diagnostic Imaging Diagonstic Imaging: Xray, CT Plain Films/CT/US/NM/MRI: chest Comments [facility], [place] NAME: MICHAEL GRIMES [facility] REC#: [id number] PT STATUS: REG ER : 1955 PHYSICIAN: IMANI JACOBS MD ADMIT DATE: 07/18/23/ER FS Draft Date of Exam:07/18/23 CT ANGIO CHEST W PROCEDURE: CT angiography of the chest with contrast. TECHNIQUE: Multiple contiguous axial images were obtained through the chest after uneventful bolus administration of intravenous contrast. 3D reconstructed CTA MIP acquisitions were also performed. Auto Exposure Controls were utilized during the CT exam to meet ALARA standards for radiation dose reduction. INDICATION: Shortness of breath and elevated D-dimer. COMPARISON: CT chest from 06/15/2022. FINDINGS: The pulmonary arteries are diagnostic to the segmental level. No filling defects are seen to indicate a pulmonary embolus. There is no right heart strain. The heart is normal in size. There is no pericardial effusion. No mediastinal adenopathy is seen. The aorta is normal in caliber. No axillary adenopathy is seen. There is a catheter in the SVC. There is no pleural effusion or pneumothorax. No central endobronchial lesion is seen. There are extensive nodular tree-in-bud groundglass opacities in the lung bases and in the perihilar region, bilaterally. The upper lungs appear clear, bilaterally. There is airspace opacity in the right middle lobe medially. There is a markedly heterogeneous appearance of the bony structures. There is mild compression deformity of T4 and L1 which appear to be chronic. Multiple lytic lesions are seen throughout the skeletal structures. There are old rib fractures, bilaterally. Imaged portions of the upper abdomen demonstrate no acute abnormality. There is a right renal cyst and the left kidney is absent. There is atrophy of the pancreas. Hypodensities in the kidney are thought to be due to cysts. There is motion artifact. IMPRESSION: 1. No pulmonary embolus. 2. Groundglass, airspace and tree-in-bud opacities in the lung bases, concerning for infection. 3. Heterogeneous density of the bony structures with multiple lytic lesions and chronic appearing compression deformities in the spine. This is likely due to multiple myeloma or metastatic disease. Dictated on workstation # [id number] Dict: 07/18/23 192 Trans: 07/18/23 194 PJE [id number] Interpreted by: ALMAZ VALLECILLO MD Electronically signed by: [facility], [place] NAME: MICHAEL GRIMES [facility] REC#: [id number] PT STATUS: REG ER : 1955 PHYSICIAN: IMANI JACOBS MD ADMIT DATE: 07/18/23/ER FS Draft Date of Exam:07/18/23 CHEST 1 VIEW AP/PA ONLY HISTORY: Shortness of breath. TECHNIQUE: Frontal view of the chest. COMPARISON: 03/23/2023. FINDINGS: Lung volumes are normal. There is mild atelectasis in the lung bases. There is no significant pleural effusion or pneumothorax. The cardiac silhouette is stable in size. Left-sided central line projects over the SVC. There are old rib fractures, bilaterally. IMPRESSION: Mild bibasilar atelectasis with no acute pulmonary abnormality seen. Dictated on workstation # [id number] Dict: 07/18/231811 Trans: 07/18/231814 PJE [id number] Interpreted by: ALMAZ VALLECILLO MD Electronically signed by: Departure Communication (Admissions) Time/Spoke to Admitting Phy: 18:51 Impression Primary Impression: Sepsis Additional Impressions: Atrial fibrillation with RVR Acute asthma exacerbation Hypoxia Elevated d-dimer Disposition: SHT-TRM HOSP Condition: Stable Admissions Decision to Admit Reason: Admit from ER (General) Decision to Admit/Date: Jul 18, 2023 Time/Decision to Admit Time: 18:00 Transfer Transfer Reason: Exceeds level of care Time Spoke to Accepting Phy: 18:51 Transfer Progress Notes Patient excepted by Dr Phillip Del Castillo, and will be admitted to telemetry Transfer Time: 19:52 Transfer Facility: [facility] Method of Transfer: Air Departure-Patient Inst. Referrals: ZAIN DEL TORO MD (PCP/Family) Primary Care Physician IMANI JACOBS MD Jul 18, 2023 18:21
[2023-07-18 18:24] LABS: BILIRUBIN,TOTAL 0.6 MG/DL (0.1-1.0); CALCIUM 9.3 MG/DL (8.5-10.1); CARBON DIOXIDE 24 MMOL/L (21-32); CHLORIDE 95 MMOL/L (98-107); GLUCOSE 117 MG/DL (70-105); MAGNESIUM 2.3 MG/DL (1.6-2.4); POTASSIUM 4.6 MMOL/L (3.6-5.0); SODIUM 133 MMOL/L (135-145); TOTAL PROTEIN 7.4 GM/DL (6.4-8.2)
[2023-07-18 18:25] LABS: INR 0.9 (0.8-1.4); PROTHROMBIN TIME PATIENT 12.6 SEC (12.2-14.7)
[2023-07-18 18:27] LABS: ALANINE AMINOTRANSFERASE 12 U/L (0-55); ALBUMIN 3.2 GM/DL (3.2-4.5); ALKALINE PHOSPHATASE 89 U/L (40-136); BUN/CREATININE RATIO 16; CREATININE SERUM 1.01 MG/DL (0.60-1.30); FIBRIN DEGRADATION PRODUCTS 0.54 UG/ML (0.00-0.49); GFR ESTIMATED 82
[2023-07-18] MEDS ORDERED: NS IV 1000 ML 1,000 ML IV SCH (18:30)
[2023-07-18] MEDS ORDERED: CEFEPIME INJECTION 1,000 MG in NS (IVPB) 50 ML 50 ML IV ONE (18:30)
[2023-07-18 18:35] LABS: BILIRUBIN,URINE NEGATIVE (NEGATIVE); CLARITY,URINE CLEAR; COLOR,URINE YELLOW; GLUCOSE, URINE (UA) NEGATIVE (NEGATIVE); KETONES,URINE NEGATIVE (NEGATIVE); LEUKOCYTE ESTERASE ,URINE NEGATIVE (NEGATIVE); NITRITE,URINE NEGATIVE (NEGATIVE); PROTEIN,URINE 1+ (NEGATIVE)
[2023-07-18 18:37] LABS: BACTERIA,URINE TRACE /HPF; SQUAMOUS EPITHELIAL CELL,UR 0-2 /HPF
[2023-07-18] MEDS ORDERED: NS 100 ML (IVPB) BAG IV ONE (18:45)
[2023-07-18] MEDS ORDERED: LIDOCAINE UROJET 2% GEL 10 ML PKG TOP ONE (18:45)
[2023-07-18] MEDS ORDERED: HOLD METFORMIN - RECEIVED CONTRAST 20 ML VIAL IV SCH (18:45)
[2023-07-18] MEDS ORDERED: LIDOCAINE UROJET 2% GEL 10 ML PKG ONE (18:50)
[2023-07-18] MEDS: IOHEXOL 350 MG/ML 100 ML (OMNIPAQUE 350) VIAL IV ONE ×2 (19:16→19:20)
[2023-07-18 19:25] LABS: ABG BASE EXCESS 6.5 MMOL/L (-2.5-2.5); ABG PCO2 31 MMHG (35-45); ABG PH 7.57 (7.37-7.43); ABG PO2 56 MMHG (79-93); ABG TCO2 29.4 MMOL/L (21.0-31.0)
[2023-07-18 19:26] LABS: ABG OXYGEN SATURATION 90 % (94-100); INSPIRED O2 10; VENTILATOR NO
--- NOTE | 2023-07-18 19:42 | Diagnostic Imaging Report ---
PROCEDURE: CT angiography of the chest with contrast. TECHNIQUE: Multiple contiguous axial images were obtained through the chest after uneventful bolus administration of intravenous contrast. 3D reconstructed CTA MIP acquisitions were also performed. Auto Exposure Controls were utilized during the CT exam to meet ALARA standards for radiation dose reduction. INDICATION: Shortness of breath and elevated D-dimer. COMPARISON: CT chest from 06/15/2022. FINDINGS: The pulmonary arteries are diagnostic to the segmental level. No filling defects are seen to indicate a pulmonary embolus. There is no right heart strain. The heart is normal in size. There is no pericardial effusion. No mediastinal adenopathy is seen. The aorta is normal in caliber. No axillary adenopathy is seen. There is a catheter in the SVC. There is no pleural effusion or pneumothorax. No central endobronchial lesion is seen. There are extensive nodular tree-in-bud groundglass opacities in the lung bases and in the perihilar region, bilaterally. The upper lungs appear clear, bilaterally. There is airspace opacity in the right middle lobe medially. There is a markedly heterogeneous appearance of the bony structures. There is mild compression deformity of T4 and L1 which appear to be chronic. Multiple lytic lesions are seen throughout the skeletal structures. There are old rib fractures, bilaterally. Imaged portions of the upper abdomen demonstrate no acute abnormality. There is a right renal cyst and the left kidney is absent. There is atrophy of the pancreas. Hypodensities in the kidney are thought to be due to cysts. There is motion artifact. IMPRESSION: 1. No pulmonary embolus. 2. Groundglass, airspace and tree-in-bud opacities in the lung bases, concerning for infection. 3. Heterogeneous density of the bony structures with multiple lytic lesions and chronic appearing compression deformities in the spine. This is likely due to multiple myeloma or metastatic disease. Dictated by: Dictated on workstation # [id number]
[2023-07-18] MEDS ORDERED: HYDROmorphone INJECTION 2 MG/ML VIAL ONE (20:04)
[2023-07-18] MEDS ORDERED: HYDROmorphone INJECTION 2 MG/ML VIAL IV ONE (20:15)
[2023-07-18 20:25] VITALS: BP 155/78
== END 2023-07-18 20:25 | disposition short-term general hospital (02) ==
LOC: EDUNIT# 17:50 → ER FS 17:51
DX: A41.9 Sepsis, unspecified organism (principal); I48.91 Unspecified atrial fibrillation; J45.901 Unspecified asthma with (acute) exacerbation; R09.02 Hypoxemia; R79.89 Other specified abnormal findings of blood chemistry
CPT/HCPCS: 36415; 51702; 71045; 71275; 80053; 81000; 82805; 83605; 83735; 83880; 84484; 85025; 85379; 85610; 85730; 86141; 87040; 87077; 87636; 93005; 96361; 96365; 96366; 96367; 96368; 96375; 99291; Q9967